=== PATIENT | female | born 1960 | race Caucasian/White ===

== ENCOUNTER → 2016-07-23 | Outpatient (CLI) | payer BC ==
[~2016-07-23] VITALS: Ht 162.6 cm; Wt 95.3 kg
[~2016-07-23] MED LIST: /AMLO25TA PO; /MOM400 PO; /ROPI5TA PO; /WARF5TA PO; ATIV0.5T3 PO; BACIDCA PO; BENT20TA PO; CIPR500T89 PO; CLIN75CA PO; COLA50CA3 PO; CYMB1CAP PO; CYMB60CA3 PO; DONN1TAB PO; FENT50DI21 TD; FERR325T69 PO; FLUC10TA PO; FLUO40CA PO; GABA-283 PO; LASI20TA PO; LEVO88TA3 PO; LIDOCAINE 2% INJ 100 MG/5 ML SDV (FOR ANES.) As Ordered ONE; LORA1TAB PO; LORA1TAB12 PO; MICR10CA PO; MIRA255PW PO; MULTCAP8 PO; OXYC40TA6 PO; OXYCO5TA PO; PRED5TAB PO; PREM0.452 PO; PRIL20CA PO; PROPOFOL 200 MG/20 ML VIAL As Ordered ONE; SENO8.6T9 PO; TEKT150T PO; TEKT300T PO; TIZA2TA PO; TOPA100T8 PO; TOPA50TA PO; TYLE325T5 PO; ULTR50TA PO; VICO5TAB PO; VITA2000 PO; ZOFR20TA PO; ZOFR4TAB3 PO; [UNRECOGNIZED DRUG - CODE] IM; [UNRECOGNIZED DRUG - OTHER] PO; fleets
--- NOTE | 2016-07-23 14:30 | ROOR ---
Patient Name: Parul Nieto Procedure Date: 07/23/2016 2:17 PM Date of : 1960 Age: 56 Room: [facility] Gender: Female Note Status: Finalized Procedure: Upper GI endoscopy + Biopsies Indications: Heartburn, Follow-up of Davila's esophagus Providers: Ronny Baker MD Referring MD: Darryl Austin MD Requesting Provider: Medicines: Monitored Anesthesia Care Complications: No immediate complications. Procedure: Pre-Anesthesia Assessment: - The heart rate, respiratory rate, oxygen saturations, blood pressure, adequacy of pulmonary ventilation, and response to care were monitored throughout the procedure. The Endoscope was introduced through the mouth, and advanced to the second part of duodenum. The upper GI endoscopy was accomplished without difficulty. The patient tolerated the procedure well. Findings: The Z-line was regular and was found 35 cm from the incisors. Multiple biopsies were obtained with cold forceps for evaluation to rule out Davila's Esophagus randomly at the gastroesophageal junction. A small hiatal hernia was present. No other significant abnormalities were identified in a careful examination of the stomach. The exam of the duodenum was otherwise normal. Impression: - Z-line regular, 35 cm from the incisors. - Small hiatal hernia. - Multiple biopsies were obtained at the gastroesophageal junction. - The examination was otherwise normal. Recommendation: - Patient has a contact number available for emergencies. The signs and symptoms of potential delayed complications were discussed with the patient. Return to normal activities tomorrow. Written discharge instructions were provided to the patient. - High fiber diet. - Discharge patient to home. - Follow an antireflux regimen. - Continue present medications. - Await pathology results. - Telephone GI clinic for pathology results in 1 week. - Return to referring physician. - The findings and recommendations were discussed with the patient's family. Ronny Baker MD Ronny Baker MD 07/23/2016 2:30:27 PM This report has been signed electronically. Number of Addenda: 0 Note Initiated On: 07/23/2016 2:17 PM Estimated Blood Loss: Estimated blood loss: none.
[2016-07-23 15:09] VITALS: BP 146/80
== END | disposition home or self-care (01) ==
LOC: M OPP 13:17
PROVIDERS: ATTEND Internal Medicine Gastroenterology
DX: K22.70 Barrett's esophagus without dysplasia (principal); K44.9 Diaphragmatic hernia without obstruction or gangrene; R12 Heartburn; K57.30 Diverticulosis of large intestine without perforation or abscess without bleeding; R00.8 Other abnormalities of heart beat; I10 Essential (primary) hypertension; E03.9 Hypothyroidism, unspecified; K58.9 Irritable bowel syndrome, unspecified; K21.9 Gastro-esophageal reflux disease without esophagitis; R23.3 Spontaneous ecchymoses; M19.90 Unspecified osteoarthritis, unspecified site; M54.9 Dorsalgia, unspecified; F41.9 Anxiety disorder, unspecified; F32.9 Major depressive disorder, single episode, unspecified; G43.909 Migraine, unspecified, not intractable, without status migrainosus; Z78.0 Asymptomatic menopausal state; J45.909 Unspecified asthma, uncomplicated; Z87.891 Personal history of nicotine dependence; Z80.0 Family history of malignant neoplasm of digestive organs; Z88.1 Allergy status to other antibiotic agents; Z91.040 Latex allergy status; Z79.899 Other long term (current) drug therapy; Z80.51 Family history of malignant neoplasm of kidney; Z80.8 Family history of malignant neoplasm of other organs or systems

== ENCOUNTER → 2016-09-11 | Outpatient (REF) | payer BC ==
[~2016-09-11] MED LIST changes: -LIDOCAINE 2% INJ 100 MG/5 ML SDV (FOR ANES.) As Ordered ONE; -PROPOFOL 200 MG/20 ML VIAL As Ordered ONE
[2016-09-11 19:14] LABS: BASO % 0.3 % (0.0-1.0); EOS # 0.1 K/mm3 (0.0-0.50); EOS % 2.1 % (0.0-3.0); LARGE UNSTAINED CELL # 0.1 K/mm3 (0.0-0.4); LARGE UNSTAINED CELL % 1.3 % (0.0-4.0); LYMPH # 0.9 K/mm3 (1.5-4.5); LYMPH % 23.3 % (24.0-44.0); MEAN CORPUSCULAR HEMOGLOBIN 32.9 pg (27.0-33.0); MEAN CORPUSCULAR VOLUME 102.9 fl (80.0-96.0); MONO # 0.3 K/mm3 (0.0-0.8); MONO % 7.4 % (0.0-5.0); NEUTROPHILS # 2.6 K/mm3 (1.8-7.7); NEUTROPHILS % 65.6 % (36.0-66.0); PLATELET COUNT, AUTOMATED 255 k/mm3 (150-450); RED CELL DISTRIBUTION WIDTH 13.2 % (11.5-14.5); WHITE BLOOD COUNT 3.9 K/mm3 (4.0-10.0)
[2016-09-11 22:03] LABS: ERYTHROCYTE SEDIMENTATION RATE 5 mm/hr (0-30)
== END ==
LOC: M LABDRAW1 14:39
PROVIDERS: ATTEND Orthopaedic Surgery
DX: M25.551 Pain in right hip (principal)

== ENCOUNTER → 2016-09-23 | Outpatient (CLI) | payer BC ==
--- NOTE | 2016-09-23 11:00 | REP ---
THREE-PHASE BONE SCAN OF THE HIPS: HISTORY: Pain in the right hip. History of partial right hip replacement in 2014. History of prior fracture of the pelvis. CT study from December 15, 2013 shows a right femoral head replacement and right superior and inferior pubic ramus fractures at the pubis. TECHNIQUE: 20.8 mCi technetium 99m MDP is injected and standard three-phase imaging is acquired. SCINTIGRAPHIC FINDINGS: The anterior and posterior flow study is normal. Blood pool images show no significant asymmetry of flow in the region of either hip. Delayed scan images demonstrate expected photopenia from the right hip prosthetic components. There is no abnormal focal uptake to suggest loosening or infection. The remainder of pelvic and right hip uptake are unremarkable. IMPRESSION: Expected findings post right femoral head replacement. No scintigraphic evidence to suggest loosening or infection. Signed by Niranjan Armendariz MD 09/23/2016 05:07 P
== END ==
LOC: M RAD 07:39
PROVIDERS: ATTEND Orthopaedic Surgery
DX: M25.551 Pain in right hip (principal)

== ENCOUNTER 2018-03-10 07:25 | Day surgery (SDC) | payer BC ==
[2018-03-10] MEDS: NS 1,000 ML IV (07:30)
[2018-03-10] MEDS ORDERED: PROPOFOL 200 MG/20 ML VIAL As Ordered ×3 (08:02→10:11)
[2018-03-10] MEDS ORDERED: LIDOCAINE 2% INJ 100 MG/5 ML SDV (FOR ANES.) As Ordered (08:02)
== END 2018-03-10 10:54 | disposition home or self-care (01) ==
LOC: M OPP 07:25
DX: Z12.11 Encounter for screening for malignant neoplasm of colon (principal); D12.4 Benign neoplasm of descending colon; K64.0 First degree hemorrhoids; R12 Heartburn; K22.8 Other specified diseases of esophagus; K29.50 Unspecified chronic gastritis without bleeding; K22.10 Ulcer of esophagus without bleeding; I10 Essential (primary) hypertension; E03.9 Hypothyroidism, unspecified; K58.9 Irritable bowel syndrome, unspecified; M19.90 Unspecified osteoarthritis, unspecified site; M81.0 Age-related osteoporosis without current pathological fracture; F33.9 Major depressive disorder, recurrent, unspecified; F41.9 Anxiety disorder, unspecified; Z78.0 Asymptomatic menopausal state; R06.83 Snoring; Z79.899 Other long term (current) drug therapy; Z79.890 Hormone replacement therapy; Z88.8 Allergy status to other drugs, medicaments and biological substances; Z88.1 Allergy status to other antibiotic agents; Z91.040 Latex allergy status; Z87.19 Personal history of other diseases of the digestive system; Z86.19 Personal history of other infectious and parasitic diseases; Z98.890 Other specified postprocedural states; Z96.89 Presence of other specified functional implants
CPT/HCPCS: 45380

== ENCOUNTER → 2018-03-12 | Outpatient (CLI) | payer BC ==
[2018-03-12 20:24] LABS: BASO % 0.8 % (0.0-1.0); EOS # 0.1 10^3/uL (0.0-0.50); EOS % 2.5 % (0.0-3.0); HEMATOCRIT 42.9 % (36.0-47.0); HEMOGLOBIN 13.6 g/dl (12.0-15.5); IMMATURE GRANULOCYTE % 0.4 % (0-3.0); LYMPH # 1.3 10^3/uL (1.5-4.5); MEAN CORPUSCULAR HEMOGLOBIN 30.6 pg (27.0-33.0); MEAN CORPUSCULAR HGB CONC 31.7 g/dl (32.0-36.5); MEAN CORPUSCULAR VOLUME 96.6 fl (80.0-96.0); MONO # 0.3 10^3/uL (0.0-0.8); MONO % 6.8 % (0.0-5.0); NEUTROPHILS # 2.9 10^3/uL (1.8-7.7); NEUTROPHILS % 62.5 % (36.0-66.0); PLATELET COUNT, AUTOMATED 290 10^3/uL (150-450); RED BLOOD COUNT 4.44 10^6/uL (4.00-5.40); RED CELL DISTRIBUTION WIDTH 12.6 % (11.5-14.5); WHITE BLOOD COUNT 4.7 10^3/uL (4.0-10.0)
[2018-03-12 20:42] LABS: ALBUMIN 3.6 GM/DL (3.2-5.2); ALKALINE PHOSPHATASE 94 U/L (45-117); ALT/SGPT 76 U/L (12-78); ANION GAP 9 MEQ/L (8-16); AST/SGOT 34 U/L (7-37); BILIRUBIN,TOTAL 0.2 MG/DL (0.2-1.0); BLOOD UREA NITROGEN 10 MG/DL (7-18); CALCIUM LEVEL 9.1 MG/DL (8.5-10.1); CARBON DIOXIDE LEVEL 27 MEQ/L (21-32); CHLORIDE LEVEL 104 MEQ/L (98-107); CHOLESTEROL LEVEL 142 MG/DL (<200); CHOLESTEROL RISK RATIO 3.021 (<5); CREATININE FOR GFR 0.94 MG/DL (0.55-1.30); FREE T4 0.98 NG/DL (0.76-1.46); GLOMERULAR FILTRATION RATE > 60.0 (>51); GLUCOSE, FASTING 104 MG/DL (70-100); HDL CHOLESTEROL 47 MG/DL (>40); LDL CHOLESTEROL 62 MG/DL (<100); NON-HDL-C 95 MG/DL; POTASSIUM SERUM 4.3 MEQ/L (3.5-5.1); SODIUM LEVEL 140 MEQ/L (136-145); TOTAL PROTEIN 6.6 GM/DL (6.4-8.2); TRIGLYCERIDES LEVEL 165 MG/DL (<150)
== END ==
LOC: M LRY 14:38
DX: E78.5 Hyperlipidemia, unspecified (principal); I10 Essential (primary) hypertension; E03.9 Hypothyroidism, unspecified
CPT/HCPCS: 84443

== ENCOUNTER → 2019-06-10 | Outpatient (CLI) | payer BC ==
[~2019-06-10] MED LIST changes: -/AMLO25TA PO; -/MOM400 PO; -/ROPI5TA PO; -/WARF5TA PO; +ALIS150T PO; +CLON0.2T PO; +COUM1TAB17 PO; +CRES5TAB PO; +CYCL10TA PO; +DICY20TA PO; -DONN1TAB PO; +DONN1TAB3 PO; +FENT1DIS14 TD; -GABA-283 PO; +GABA-843 PO; +GABA-845 PO; +HYDR-4571 PO; -LORA1TAB12 PO; +LORA1TAB4 PO; +MAXA10TA14 PO; +MILK10SU PO; -MIRA255PW PO; +NORV2TAB PO; +ONDA-228 PO; +OXYC-517 PO; -OXYCO5TA PO; +PATA2.5S OS; +POLY1POW4 PO; +REQU1TAB15 PO; -TEKT150T PO; +TOPA100T12 PO; -TOPA100T8 PO; -ZOFR20TA PO; +ZOFR4TAB16 PO; -ZOFR4TAB3 PO
[2019-06-10 11:59] LABS: APPEARANCE, URINE HAZY (CLEAR); BACTERIA, URINE AUTO NEGATIVE (NEGATIVE); BILIRUBIN, URINE AUTO NEGATIVE (NEGATIVE); BLOOD, URINE BLOOD NEGATIVE (NEGATIVE); COLOR, URINE YELLOW (YELLOW); GLUCOSE, URINE (UA) AUTO NEGATIVE (NEGATIVE); KETONE, URINE AUTO NEGATIVE (NEGATIVE); LEUKOCYTE ESTERASE, URINE AUTO 2+ (NEGATIVE); MUCUS, URINE SMALL (NEGATIVE); NITRITE, URINE AUTO NEGATIVE (NEGATIVE); PROTEIN, URINE AUTO NEGATIVE (NEGATIVE); RBC, URINE AUTO 2 /HPF (0-3); SPECIFIC GRAVITY URINE AUTO 1.029 (1.002-1.035); SQUAMOUS EPITHELIAL CELL UR AU 1 /HPF (0-6); UROBILINOGEN, URINE AUTO 0.2 mg/dL (0.0-2.0); WBC, URINE AUTO 23 /HPF (0-3)
[2019-06-10 12:01] LABS: BASO # 0.1 10^3/uL (0.0-0.2); BASO % 0.8 % (0.0-1.0); EOS # 0.2 10^3/uL (0.0-0.5); EOS % 3.5 % (0.0-3.0); HEMATOCRIT 45.4 % (36.0-47.0); HEMOGLOBIN 14.4 g/dl (12.0-15.5); LYMPH # 3.2 10^3/uL (1.5-5.0); LYMPH % 52.3 % (24.0-44.0); MEAN CORPUSCULAR HEMOGLOBIN 30.1 pg (27.0-33.0); MEAN CORPUSCULAR HGB CONC 31.7 g/dl (32.0-36.5); MONO # 0.4 10^3/uL (0.0-0.8); MONO % 6.6 % (0.0-5.0); NEUTROPHILS # 2.3 10^3/uL (1.5-8.5); NEUTROPHILS % 36.6 % (36.0-66.0); PLATELET COUNT, AUTOMATED 348 10^3/uL (150-450); RED BLOOD COUNT 4.78 10^6/uL (4.00-5.40); WHITE BLOOD COUNT 6.2 10^3/uL (4.0-10.0)
[2019-06-10 12:13] LABS: ALBUMIN 4.1 GM/DL (3.2-5.2); ALT/SGPT 125 U/L (12-78); AMYLASE 38 U/L (25-115); BILIRUBIN,TOTAL 0.5 MG/DL (0.2-1.0); BLOOD UREA NITROGEN 13 MG/DL (7-18); CALCIUM LEVEL 8.7 MG/DL (8.5-10.1); CARBON DIOXIDE LEVEL 26 MEQ/L (21-32); CHLORIDE LEVEL 107 MEQ/L (98-107); CHOLESTEROL LEVEL 223 MG/DL (<200); CHOLESTEROL RISK RATIO 3.912 (<5); CREATININE FOR GFR 0.99 MG/DL (0.55-1.30); FREE T4 1.01 NG/DL (0.76-1.46); GLOMERULAR FILTRATION RATE > 60.0 (>51); GLUCOSE, FASTING 79 MG/DL (70-100); HDL CHOLESTEROL 57 MG/DL (>40); LDL CHOLESTEROL 136 MG/DL (<100); LIPASE 79 U/L (73-393); MAGNESIUM LEVEL 2.3 MG/DL (1.8-2.4); NON-HDL-C 166 MG/DL; POTASSIUM SERUM 4.4 MEQ/L (3.5-5.1); SODIUM LEVEL 141 MEQ/L (136-145); TOTAL PROTEIN 7.1 GM/DL (6.4-8.2); TRIGLYCERIDES LEVEL 151 MG/DL (<150); TROPONIN I < 0.02 NG/ML (< 0.10)
[2019-06-10 13:26] LABS: TOTAL 25(OH) VITAMIN D 37.4 NG/ML (30.0-100.0)
== END ==
LOC: M LRY 09:12
PROVIDERS: ATTEND Internal Medicine
DX: Z00.00 Encounter for general adult medical examination without abnormal findings (principal); E03.9 Hypothyroidism, unspecified; I10 Essential (primary) hypertension; R10.12 Left upper quadrant pain

== ENCOUNTER → 2019-11-18 | Outpatient (CLI) | payer BC ==
[~2019-11-18] MED LIST changes: +CYCL-707 PO; -CYCL10TA PO
[2019-11-18 19:19] LABS: BASO % 0.8 % (0.0-1.0); EOS # 0.2 10^3/uL (0.0-0.5); EOS % 5.9 % (0.0-3.0); HEMATOCRIT 41.3 % (36.0-47.0); HEMOGLOBIN 13.9 g/dl (12.0-15.5); LYMPH # 1.5 10^3/uL (1.5-5.0); LYMPH % 40.5 % (24.0-44.0); MEAN CORPUSCULAR HGB CONC 33.7 g/dl (32.0-36.5); MONO # 0.2 10^3/uL (0.0-0.8); MONO % 6.4 % (0.0-5.0); NEUTROPHILS # 1.7 10^3/uL (1.5-8.5); NEUTROPHILS % 46.1 % (36.0-66.0); PLATELET COUNT, AUTOMATED 332 10^3/uL (150-450); RED BLOOD COUNT 4.49 10^6/uL (4.00-5.40); WHITE BLOOD COUNT 3.6 10^3/uL (4.0-10.0)
[2019-11-18 19:33] LABS: APPEARANCE, URINE CLEAR (CLEAR); BACTERIA, URINE AUTO NEGATIVE (NEGATIVE); BILIRUBIN, URINE AUTO NEGATIVE (NEGATIVE); BLOOD, URINE BLOOD NEGATIVE (NEGATIVE); COLOR, URINE STRAW (YELLOW); GLUCOSE, URINE (UA) AUTO NEGATIVE (NEGATIVE); KETONE, URINE AUTO NEGATIVE (NEGATIVE); LEUKOCYTE ESTERASE, URINE AUTO NEGATIVE (NEGATIVE); MUCUS, URINE SMALL (NEGATIVE); NITRITE, URINE AUTO NEGATIVE (NEGATIVE); PROTEIN, URINE AUTO NEGATIVE (NEGATIVE); RBC, URINE AUTO 0 /HPF (0-3); SPECIFIC GRAVITY URINE AUTO 1.008 (1.002-1.035); SQUAMOUS EPITHELIAL CELL UR AU 0 /HPF (0-6); UROBILINOGEN, URINE AUTO 0.2 mg/dL (0.0-2.0); WBC, URINE AUTO 1 /HPF (0-3)
[2019-11-18 19:52] LABS: ALT/SGPT 59 U/L (12-78); BILIRUBIN,DIRECT < 0.1 MG/DL (0.0-0.2); BILIRUBIN,TOTAL 0.2 MG/DL (0.2-1.0); BLOOD UREA NITROGEN 9 MG/DL (7-18); CALCIUM LEVEL 8.8 MG/DL (8.5-10.1); CARBON DIOXIDE LEVEL 24 MEQ/L (21-32); CHLORIDE LEVEL 107 MEQ/L (98-107); CHOLESTEROL LEVEL 162 MG/DL (<200); CREATININE FOR GFR 0.94 MG/DL (0.55-1.30); GLOMERULAR FILTRATION RATE > 60.0 (>51); GLUCOSE, FASTING 92 MG/DL (70-100); POTASSIUM SERUM 4.6 MEQ/L (3.5-5.1); SODIUM LEVEL 138 MEQ/L (136-145); TRIGLYCERIDES LEVEL 141 MG/DL (<150)
[2019-11-18 19:53] LABS: ALBUMIN 3.8 GM/DL (3.2-5.2); C REACTIVE PROTEIN QUANTITATIV < 0.30 MG/DL (0.00-0.30); FREE T4 0.96 NG/DL (0.76-1.46); HDL CHOLESTEROL 50 MG/DL (>40); LDL CHOLESTEROL 84 MG/DL (<100); NON-HDL-C 112 MG/DL; THYROID STIMULATING HORMONE 0.407 uIU/ML (0.358-3.740)
[2019-11-18 19:55] LABS: FOLATE 23.3 NG/ML (>5.4); TOTAL 25(OH) VITAMIN D 42.4 NG/ML (30.0-100.0); VITAMIN B12 LEVEL 493 PG/ML (247-911)
[2019-11-18 20:09] LABS: ERYTHROCYTE SEDIMENTATION RATE 4 mm/hr (0-30)
== END ==
LOC: M LRY 15:42
PROVIDERS: ATTEND Internal Medicine
DX: R53.82 Chronic fatigue, unspecified (principal); N39.0 Urinary tract infection, site not specified; R74.0 Nonspecific elevation of levels of transaminase and lactic acid dehydrogenase [LDH]

== ENCOUNTER → 2020-03-09 | Outpatient (CLI) | payer BC ==
[2020-03-09 17:16] LABS: BASO % 0.7 % (0.0-1.0); EOS # 0.1 10^3/uL (0.0-0.5); EOS % 0.9 % (0.0-3.0); HEMATOCRIT 41.1 % (36.0-47.0); LYMPH # 1.6 10^3/uL (1.5-5.0); LYMPH % 27.7 % (24.0-44.0); MEAN CORPUSCULAR HEMOGLOBIN 30.5 pg (27.0-33.0); MEAN CORPUSCULAR HGB CONC 31.6 g/dl (32.0-36.5); MEAN CORPUSCULAR VOLUME 96.5 fl (80.0-96.0); MONO # 0.5 10^3/uL (0.0-0.8); MONO % 7.9 % (0.0-5.0); NEUTROPHILS # 3.6 10^3/uL (1.5-8.5); NEUTROPHILS % 62.6 % (36.0-66.0); PLATELET COUNT, AUTOMATED 466 10^3/uL (150-450); RED BLOOD COUNT 4.26 10^6/uL (4.00-5.40); WHITE BLOOD COUNT 5.7 10^3/uL (4.0-10.0)
[2020-03-09 17:30] LABS: ALBUMIN 3.8 GM/DL (3.2-5.2); ALT/SGPT 26 U/L (12-78); BILIRUBIN,TOTAL 0.2 MG/DL (0.2-1.0); BLOOD UREA NITROGEN 15 MG/DL (7-18); CALCIUM LEVEL 9.2 MG/DL (8.5-10.1); CARBON DIOXIDE LEVEL 29 MEQ/L (21-32); CHLORIDE LEVEL 108 MEQ/L (98-107); CREATININE FOR GFR 0.81 MG/DL (0.55-1.30); GLOMERULAR FILTRATION RATE > 60.0 (>51); GLUCOSE, FASTING 89 MG/DL (70-100); POTASSIUM SERUM 4.6 MEQ/L (3.5-5.1); SODIUM LEVEL 141 MEQ/L (136-145); TOTAL PROTEIN 6.6 GM/DL (6.4-8.2)
[2020-03-09 18:12] LABS: ERYTHROCYTE SEDIMENTATION RATE 5 mm/hr (0-30)
[2020-03-13 13:07] LABS: TOPIRAMATE LEVEL 3.2 ug/mL (2.0-25.0)
== END ==
LOC: M LAB 15:53
PROVIDERS: ATTEND Internal Medicine
DX: G43.419 Hemiplegic migraine, intractable, without status migrainosus (principal)

== ENCOUNTER → 2020-04-08 | Outpatient (CLI) | payer BC ==
[2020-04-08 10:23] LABS: CHOLESTEROL RISK RATIO 2.027 (<5); FREE T4 1.25 NG/DL (0.76-1.46); THYROID STIMULATING HORMONE 0.523 uIU/ML (0.358-3.740)
== END ==
LOC: M LAB 09:15
PROVIDERS: ATTEND Internal Medicine
DX: E03.9 Hypothyroidism, unspecified (principal)

== ENCOUNTER → 2020-06-13 | Outpatient (CLI) | payer BC ==
[~2020-06-13] MED LIST changes: -DICY20TA PO; +DICY20TA3 PO; +GABA-282 PO; -GABA-843 PO
[2020-06-13 18:11] LABS: BASO # 0.1 10^3/uL (0.0-0.2); BASO % 0.5 % (0.0-1.0); HEMATOCRIT 39.9 % (36.0-47.0); HEMOGLOBIN 12.8 g/dl (12.0-15.5); LYMPH # 1.5 10^3/uL (1.5-5.0); LYMPH % 16.4 % (24.0-44.0); MEAN CORPUSCULAR HEMOGLOBIN 29.8 pg (27.0-33.0); MEAN CORPUSCULAR HGB CONC 32.1 g/dl (32.0-36.5); MEAN CORPUSCULAR VOLUME 92.8 fl (80.0-96.0); MONO # 0.5 10^3/uL (0.0-0.8); MONO % 5.4 % (0.0-5.0); NEUTROPHILS # 7.1 10^3/uL (1.5-8.5); NEUTROPHILS % 76.5 % (36.0-66.0); PLATELET COUNT, AUTOMATED 517 10^3/uL (150-450); WHITE BLOOD COUNT 9.3 10^3/uL (4.0-10.0)
[2020-06-13 18:31] LABS: ERYTHROCYTE SEDIMENTATION RATE 5 mm/hr (0-30)
[2020-06-13 18:41] LABS: ALBUMIN 4.1 GM/DL (3.2-5.2); ALT/SGPT 26 U/L (12-78); BILIRUBIN,TOTAL 0.3 MG/DL (0.2-1.0); BLOOD UREA NITROGEN 14 MG/DL (7-18); CALCIUM LEVEL 9.8 MG/DL (8.5-10.1); CARBON DIOXIDE LEVEL 30 MEQ/L (21-32); CHLORIDE LEVEL 100 MEQ/L (98-107); CREATININE FOR GFR 0.78 MG/DL (0.55-1.30); GLOMERULAR FILTRATION RATE > 60.0 (>51); GLUCOSE, FASTING 105 MG/DL (70-100); POTASSIUM SERUM 4.5 MEQ/L (3.5-5.1); SODIUM LEVEL 136 MEQ/L (136-145); TOTAL PROTEIN 7.2 GM/DL (6.4-8.2)
== END ==
LOC: M LAB 17:30
PROVIDERS: ATTEND Internal Medicine
DX: L03.119 Cellulitis of unspecified part of limb (principal)

== ENCOUNTER → 2020-07-31 | Outpatient (REF) | payer BC | LOC: M SFHCPLAZ 17:09 | PROVIDERS: ATTEND Internal Medicine Infectious Disease | DX: L03.119 Cellulitis of unspecified part of limb (principal) ==

== ENCOUNTER → 2020-07-31 | Outpatient (REF) | payer BC ==
[2020-07-31 17:13] LABS: BASO % 0.3 % (0.0-1.0); EOS % 0.1 % (0.0-3.0); HEMATOCRIT 38.9 % (36.0-47.0); HEMOGLOBIN 12.2 g/dl (12.0-15.5); LYMPH # 1.2 10^3/uL (1.5-5.0); LYMPH % 12.8 % (24.0-44.0); MEAN CORPUSCULAR HEMOGLOBIN 28.8 pg (27.0-33.0); MEAN CORPUSCULAR HGB CONC 31.4 g/dl (32.0-36.5); MONO # 0.5 10^3/uL (0.0-0.8); MONO % 5.7 % (2.0-8.0); NEUTROPHILS # 7.4 10^3/uL (1.5-8.5); NEUTROPHILS % 79.7 % (36.0-66.0); PLATELET COUNT, AUTOMATED 451 10^3/uL (150-450); RED BLOOD COUNT 4.23 10^6/uL (4.00-5.40); WHITE BLOOD COUNT 9.3 10^3/uL (4.0-10.0)
[2020-07-31 17:34] LABS: ALBUMIN 3.9 GM/DL (3.2-5.2); ALT/SGPT 37 U/L (12-78); BILIRUBIN,TOTAL 0.3 MG/DL (0.2-1.0); BLOOD UREA NITROGEN 15 MG/DL (7-18); CARBON DIOXIDE LEVEL 28 MEQ/L (21-32); CHLORIDE LEVEL 99 MEQ/L (98-107); CREATININE FOR GFR 0.82 MG/DL (0.55-1.30); GLOMERULAR FILTRATION RATE > 60.0 (>51); GLUCOSE, FASTING 108 MG/DL (70-100); POTASSIUM SERUM 4.5 MEQ/L (3.5-5.1); SODIUM LEVEL 133 MEQ/L (136-145); TOTAL PROTEIN 6.5 GM/DL (6.4-8.2)
[2020-07-31 18:43] LABS: ERYTHROCYTE SEDIMENTATION RATE 3 mm/hr (0-30)
== END ==
LOC: M SFHCPLAZ 15:01
PROVIDERS: ATTEND Internal Medicine Infectious Disease
DX: L03.119 Cellulitis of unspecified part of limb (principal)

== ENCOUNTER → 2020-09-18 | Outpatient (CLI) | payer BC ==
[~2020-09-18] MED LIST changes: +GABA-283 PO; -GABA-845 PO
--- NOTE | 2020-09-18 10:29 | REP ---
INDICATION: EDEMA, UNSPECIFIED,UNSPECIFIED ABDOMINAL PAIN/ECHO 1ST TECHNIQUE: Real time B-mode rosas scale ultrasound examination using curved array transducer. FINDINGS: Liver is heterogeneous and hyperechoic suggesting fatty infiltration. No focal hepatic lesion identified. Spleen, and pancreas are normal in contour, size, echogenicity, and overall appearance. No focal splenic or pancreatic lesions are identified. Gallbladder is surgically absent. No biliary ductal dilatation is appreciated and the common bile duct measures 6 mm diameter.. The bilateral kidneys are normal in reniform shape without hydronephrosis or obvious abnormality. Right kidney measures 8.8 x 4.8 x 3.5 cm. Left kidney measures 10.2 x 5.1 x 5.3 cm. Abdominal aorta measures 2.2 cm maximal diameter. No obvious ascites. IMPRESSION: Hepatosteatosis and possible hepatocellular disease without focal hepatic lesion identified. <Electronically signed by Hesham Boykin > 09/18/20 1026
--- NOTE | 2020-09-19 08:29 | ECHO ---
DATE OF PROCEDURE: 09/18/2020 Age: 60 Gender: Female Height: 160 cm Weight: 103 kg REFERRING PHYSICIAN: Darryl Austin D.O. INDICATION: Edema. MEASUREMENTS: IVS 1.0 cm LV 4.5 cm LVPW 1.0 cm LA 4.5 cm Aorta 2.8 cm Left atrial volume index 32 mL/m2 IVC 2.2 cm Mitral E wave velocity 109 cm/s Mitral A wave 91 cm/s E prime septal 7.7 cm/s E prime lateral 8.8 cm/s FINDINGS: This study is of good technical quality. Underlying sinus rhythm. Left ventricle is normal size. Overall normal LV systolic function with estimated LVEF 65% to 70%. No segmental wall motion abnormalities are appreciated. Right ventricle has also normal size and systolic function. Left atrium is at least moderately enlarged. Right atrium was poorly visualized, but also appears enlarged. The aortic valve is sclerotic, but it has three cusps and preserved mobility. There is thickening of the mitral leaflets, but mobility is preserved. I do not appreciate any distinct prolapse by 2D imaging. Tricuspid valve appears normal. Pulmonic valve was not well seen. No pericardial effusion is noted. Inferior vena cava is dilated and there is no appreciable collapse with inspiration indicative of elevated central venous pressure. Aortic root and aortic arch appear normal. Abdominal aorta was not well seen. Doppler interrogation of the aortic valve reveals no stenosis and trace insufficiency. There is at least moderate if not more severe mitral insufficiency with central MR jet. There is mild tricuspid insufficiency. Calculated pulmonary artery pressure is at least in the low to mid 40s corresponding to moderate pulmonary hypertension. Mitral inflow pattern and tissue Doppler imaging of the mitral annulus revealed most likely grade 2 diastolic dysfunction. CONCLUSIONS: 1. Study is of good technical quality, underlying sinus rhythm. 2. Normal LV size with preserved LV systolic function and probably grade 2 diastolic dysfunction. 3. Normal RV size and systolic function. 4. Aortic sclerosis with no significant stenosis and trace insufficiency. 5. Degenerative abnormalities of the mitral valve with at least moderate mitral insufficiency. 6. Likely elevated central venous pressure and moderate pulmonary hypertension. MTDD
== END ==
LOC: M RAD 09:19
PROVIDERS: ATTEND Internal Medicine
DX: R60.9 Edema, unspecified (principal); R10.9 Unspecified abdominal pain

== ENCOUNTER → 2020-10-16 | Outpatient (CLI) | payer BC ==
--- NOTE | 2020-10-17 09:24 | REPMRS ---
Patient History The patient states she has not had a clinical breast exam in over a year. Patient is postmenopausal. Family history of breast cancer under age 50 in maternal aunt, colorectal cancer at age 50 in paternal grandfather, ovarian cancer at age 34 in daughter. Tomosynthesis is performed. Volpara breast density is a. [facility] lifetime risk of breast cancer 9.1%. Patient states no breast complaints today. Patient has signed MRS History Sheet. Digital Woman Screen Mammo: October 16, 2020 - Exam #: [id number] Bilateral CC and MLO view(s) were taken. Technologist: Fallon Jimenez, Technologist Prior study comparison: 2018, bilateral digital mammo screening bilat, performed at [facility]. 2017, bilateral digital mammo screening bilat, performed at [facility]. FINDINGS: There are scattered fibroglandular densities. There has been no change in the appearance of the mammogram from the prior studies. There is a mild amount of residual fibroglandular tissue which is fairly symmetric. There is no interval development of dominant mass, architectural distortion, or clustered microcalcification suggestive of malignancy. Assessment: BI-RADS/ACR category 1 mammogram. Negative Mammogram. Recommendation Routine screening mammogram in 1 year (for women over age 40). This mammogram was interpreted with the aid of an FDA-approved computer-aided dectection system. Electronically Signed By: Jay Corley MD 10/17/20 0924
== END ==
LOC: M WHC 14:27
PROVIDERS: ATTEND Internal Medicine
DX: Z12.31 Encounter for screening mammogram for malignant neoplasm of breast (principal)

== ENCOUNTER → 2020-10-16 | Outpatient (REF) | payer BC | LOC: M SFHCWAGY 17:16 | PROVIDERS: ATTEND Advanced Practice Midwife | DX: Z12.4 Encounter for screening for malignant neoplasm of cervix (principal) ==

== ENCOUNTER → 2020-11-20 | Outpatient (CLI) | payer BC ==
[2020-11-20 12:35] LABS: BASO % 0.5 % (0.0-1.0); EOS % 0.4 % (0.0-3.0); HEMATOCRIT 37.3 % (36.0-47.0); HEMOGLOBIN 11.6 g/dl (12.0-15.5); LYMPH # 1.4 10^3/uL (1.5-5.0); LYMPH % 19.2 % (24.0-44.0); MEAN CORPUSCULAR HGB CONC 31.1 g/dl (32.0-36.5); MEAN CORPUSCULAR VOLUME 93.3 fl (80.0-96.0); MONO # 0.6 10^3/uL (0.0-0.8); MONO % 7.7 % (2.0-8.0); NEUTROPHILS # 5.4 10^3/uL (1.5-8.5); NEUTROPHILS % 71.7 % (36.0-66.0); PLATELET COUNT, AUTOMATED 351 10^3/uL (150-450); WHITE BLOOD COUNT 7.5 10^3/uL (4.0-10.0)
[2020-11-20 13:10] LABS: ALT/SGPT 35 U/L (12-78); BILIRUBIN,TOTAL 0.2 MG/DL (0.2-1.0); BLOOD UREA NITROGEN 20 MG/DL (7-18); CALCIUM LEVEL 8.9 MG/DL (8.5-10.1); CARBON DIOXIDE LEVEL 27 MEQ/L (21-32); CHLORIDE LEVEL 104 MEQ/L (98-107); CHOLESTEROL LEVEL 316 MG/DL (< 200); CPK CREATINE PHOSPHOKINASE 124 U/L (26-192); GLOMERULAR FILTRATION RATE > 60.0 (>51); GLUCOSE, FASTING 109 MG/DL (70-100); LDH LACTATE DEHYDROGENASE 329 U/L (84-246); PHOSPHORUS LEVEL 3.1 MG/DL (2.5-4.9); POTASSIUM SERUM 4.3 MEQ/L (3.5-5.1); RHEUMATOID FACTOR QUANT < 10.0 IU/ML (<15.0); SODIUM LEVEL 138 MEQ/L (136-145); TOTAL PROTEIN 7.1 GM/DL (6.4-8.2); TRIGLYCERIDES LEVEL 68 MG/DL (<150)
[2020-11-20 13:13] LABS: ERYTHROCYTE SEDIMENTATION RATE 12 mm/hr (0-30)
[2020-11-21 11:08] LABS: ANTINUCLEAR ANTIBODIES DIRECT Negative (Negative)
== END ==
LOC: M LAB 11:31
PROVIDERS: ATTEND Internal Medicine
DX: M13.0 Polyarthritis, unspecified (principal)

== ENCOUNTER → 2020-11-20 | Outpatient (CLI) | payer BC ==
[2020-11-20 13:20] LABS: BLOOD UREA NITROGEN 21 MG/DL (7-18); CALCIUM LEVEL 8.5 MG/DL (8.5-10.1); CARBON DIOXIDE LEVEL 27 MEQ/L (21-32); CHLORIDE LEVEL 103 MEQ/L (98-107); CREATININE FOR GFR 0.86 MG/DL (0.55-1.30); GLOMERULAR FILTRATION RATE > 60.0 (>51); GLUCOSE, FASTING 110 MG/DL (70-100); POTASSIUM SERUM 4.2 MEQ/L (3.5-5.1); SODIUM LEVEL 136 MEQ/L (136-145)
== END ==
LOC: M LAB 11:26
PROVIDERS: ATTEND Internal Medicine Cardiovascular Disease
DX: R06.02 Shortness of breath (principal); I34.0 Nonrheumatic mitral (valve) insufficiency

== ENCOUNTER 2021-01-16 23:47 | Observation (INO) | payer BC ==
[~2021-01-16] VITALS: Ht 160 cm; Wt 117.3 kg
[2021-01-17 00:55] LABS: BASO % 0.4 % (0.0-1.0); EOS # 0.1 10^3/uL (0.0-0.5); EOS % 0.8 % (0.0-3.0); HEMATOCRIT 35.7 % (36.0-47.0); HEMOGLOBIN 11.1 g/dl (12.0-15.5); LYMPH % 36.5 % (24.0-44.0); MEAN CORPUSCULAR HEMOGLOBIN 27.3 pg (27.0-33.0); MEAN CORPUSCULAR HGB CONC 31.1 g/dl (32.0-36.5); MEAN CORPUSCULAR VOLUME 87.9 fl (80.0-96.0); MONO # 0.8 10^3/uL (0.0-0.8); MONO % 9.1 % (2.0-8.0); NEUTROPHILS # 4.4 10^3/uL (1.5-8.5); NEUTROPHILS % 52.7 % (36.0-66.0); PLATELET COUNT, AUTOMATED 374 10^3/uL (150-450); RED BLOOD COUNT 4.06 10^6/uL (4.00-5.40); WHITE BLOOD COUNT 8.3 10^3/uL (4.0-10.0)
[2021-01-17] MEDS ORDERED: ISOVUE-370 76% 100ML VIAL As Ordered ONE (01:34)
[2021-01-17 01:35] LABS: ALBUMIN 3.5 GM/DL (3.2-5.2); BILIRUBIN,DIRECT 0.1 MG/DL (0.0-0.2); BILIRUBIN,TOTAL 0.2 MG/DL (0.2-1.0); CALCIUM LEVEL 8.5 MG/DL (8.5-10.1); CK-MB VALUE MASS 5.9 NG/ML (<3.6); CREATININE FOR GFR 1.16 MG/DL (0.55-1.30); GLOMERULAR FILTRATION RATE 50.9 (>51); MB/CK RELATIVE INDEX 2.46 (< OR =4); POTASSIUM SERUM 3.7 MEQ/L (3.5-5.1); THYROID STIMULATING HORMONE 4.02 uIU/ML (0.358-3.740); TOTAL PROTEIN 6.4 GM/DL (6.4-8.2); TROPONIN I 0.02 NG/ML (< 0.10)
--- NOTE | 2021-01-17 02:16 | REPVR ---
PROCEDURE INFORMATION: Exam: CT Cervical Spine Without Contrast Exam date and time: 01/17/2021 1:13 AM Age: 60 years old Clinical indication: Neck pain; Additional info: Trauma TECHNIQUE: Imaging protocol: Computed tomography images of the cervical spine without contrast. Radiation optimization: All CT scans at this facility use at least one of these dose optimization techniques: automated exposure control; mA and/or kV adjustment per patient size (includes targeted exams where dose is matched to clinical indication); or iterative reconstruction. COMPARISON: No relevant prior studies available. FINDINGS: Bones/joints: No segmental vertebral malalignment. Vertebral body height is maintained at all levels. No acute fracture. No destructive or blastic cervical spine osseous lesion. Discs/Spinal canal/Neural foramina: Intervertebral disc spaces are appropriate for age. Lungs: Imaged lung apices demonstrate no concerning abnormality. Pleural spaces: No apical pneumothorax. Soft tissues: Soft tissues show no concerning abnormality or asymmetry. IMPRESSION: No acute fracture or traumatic segmental cervical malalignment. Electronically signed by: Hugo Solano On 01/17/2021 02:16:25 AM
--- NOTE | 2021-01-17 02:16 | REPVR ---
PROCEDURE INFORMATION: Exam: CT Head Without Contrast Exam date and time: 01/17/2021 1:13 AM Age: 60 years old Clinical indication: Injury or trauma; Fall; Concussion/head injury TECHNIQUE: Imaging protocol: Computed tomography of the head without contrast. Radiation optimization: All CT scans at this facility use at least one of these dose optimization techniques: automated exposure control; mA and/or kV adjustment per patient size (includes targeted exams where dose is matched to clinical indication); or iterative reconstruction. COMPARISON: No relevant prior studies available. FINDINGS: Brain: No intracranial mass, mass effect or midline shift. No acute intracranial hemorrhage. No CT evidence of acute cortical infarct. Ventricles, cisterns, and sulci are normal in size for age. Paranasal sinuses: Imaged paranasal sinuses are normally aerated. Mastoid air cells: Mastoid air cells and middle ear structures are normally aerated. Orbital cavity: Imaged orbits are unremarkable. Bones/joints: No calvarial fracture or destructive process. Soft tissues: No focal extracranial soft tissue swelling. IMPRESSION: No acute or concerning focal intracranial abnormality. Electronically signed by: Hugo Solano On 01/17/2021 02:15:42 AM
--- NOTE | 2021-01-17 02:19 | REPVR ---
PROCEDURE INFORMATION: Exam: CTA Chest With Contrast Exam date and time: 01/17/2021 1:13 AM Age: 60 years old Clinical indication: Other: Syncope; Additional info: Chest pain syncope TECHNIQUE: Imaging protocol: Computed tomographic angiography of the chest with contrast. 3D rendering (Not supervised by radiologist): MIP and/or 3D reconstructed images were created by the technologist. Radiation optimization: All CT scans at this facility use at least one of these dose optimization techniques: automated exposure control; mA and/or kV adjustment per patient size (includes targeted exams where dose is matched to clinical indication); or iterative reconstruction. Contrast material: ISO; Contrast volume: 75 ml; Contrast route: INTRAVENOUS (IV); COMPARISON: CT Spine,cervical w/o contrast 01/17/2021 1:52 AM FINDINGS: Pulmonary arteries: No focal pulmonary artery filling defect to suggest acute pulmonary embolus. Aorta: No thoracic aortic aneurysm or dissection. Lungs: Pulmonary vascular/interstitial pattern does not suggest active pulmonary edema. No suspicious lung mass or air space process. No central endobronchial lesion. Pleural spaces: No pleural effusion or pneumothorax. Heart: Prominent sized heart. No pericardial effusion. Lymph nodes: No enlarged mediastinal lymph nodes. Bones/joints: Bony structures show no acute fracture or destructive process. Soft tissues: No asymmetric abnormality of the extrathoracic soft tissues. No concerning asymmetry or abnormality at the GE junction. IMPRESSION: 1. No evidence of acute pulmonary embolus. 2. No other acute or concerning focal intrathoracic abnormality. Electronically signed by: Hugo Solano On 01/17/2021 02:18:39 AM
[2021-01-17] MEDS ORDERED: ACETAMINOPHEN TAB 650MG DOSE (2X325MG) PO PRN (02:50)
[2021-01-17] MEDS ORDERED: MAALOX 30 ML SUSP *UDC PO PRN (02:50)
[2021-01-17] MEDS ORDERED: MOM 30ML SUSPENSION UDC PO PRN (02:50)
[2021-01-17 03:23] LABS: RSV AMPLIFICATION NEGATIVE (NEGATIVE)
--- NOTE | 2021-01-17 05:21 | HPEPDOC ---
[facility] Medical History & Physical Date of Admission Jan 17, 2021 Date of Service: Jan 17, 2021 Attending Physician: FELICIANO HOWELL MD History and Physical TIME OF SERVICE: CHIEF COMPLAINT: loss of consciousness HISTORY OF PRESENT ILLNESS: Over the last few months has not been feeling well. She has gained water weight, has had chest pain, and shortness of breath. She has been evaluated by . Yesterday evening while preparing to eat dinner her found her on the floor passed out. cant remember how she ended up on the floor. She remembers seeing director paid media in her house but has difficulties remembering all of the events leading up to her arrival in the ER. This is the first time she has lost consciousness. She denies vomiting yesterday, denies eating or drinking less than usual yesterday, denies having a change in her chronic chest pain yesterday, & denies any changes in her chronic shortness of breath yesterday. Of note she had 3 migraines yesterday, which is atypical and after each episode had loose stools. She denies having bloody BMs. REVIEW OF SYSTEMS: 10-point review of systems negative except as listed in HPI PAST MEDICAL/ SURGICAL HISTORY: Migraines Moderate Pulm HTN Moderate mitral insufficiency Essential HTN Chronic HFpEF (Grade 2) IBS-D Hypothyroidism Right shoulder adhesive capsulitis PATY Barretts esophagus Recurrent lower extremity cellulitis Cholecystectomy Bilateral hip surgeries Back surgery Tubal Ligation Placement of a spinal stimulator device with subsequent reversal FAMILY HISTORY: Multiple family members had cancer (pancreatic, colon and renal) SOCIAL HISTORY: She is a former smoker (quit in her 20s), is and lives with her ALLERGIES: Please see below. HOME MEDICATIONS: Please see below. PHYSICAL EXAMINATION: Vital Signs Date Time Temp Pulse Resp B/P (MAP) Pulse Ox O2 Delivery O2 Flow Rate FiO2 01/17/21 00:42 118/55 (76) 01/17/21 00:47 70 99 01/17/21 01:19 Room Air 01/17/21 01:35 19 01/17/21 01:53 97.9 GENERAL APPEARANCE: well-nourished and developed/ slightly anxious HEENT: EOMI / MMM&P CARDIOVASCULAR: RRR/NMRG LUNGS: CTAB on RA ABDOMEN: contour convex / soft & NT w palpation MUSCULOSKELETAL: NCAT / SIMEON x 4 extremities INTEGUMENT: not cyanotic, flushed or diaphoretic NEUROLOGICAL: CN 2-12 grossly intact / speech not dysarthric PSYCHIATRIC: A&O x 3 / able to understand and follow all commands LABORATORY DATA: IMAGING: CTA chest IMPRESSION: 1. No evidence of acute pulmonary embolus. 2. No other acute or concerning focal intrathoracic abnormality. CT head IMPRESSION: No acute or concerning focal intracranial abnormality. CT cervical spine IMPRESSION: No acute fracture or traumatic segmental cervical malalignment. MICROBIOLOGY: Respiratory panel neg ASSESSMENT: is a 60 yr old w Migraines, Pulm HTN, mitral insufficiency, HTN, HFpEF, IBS-D, Hypothyroidism, adhesive capsulitis, PATY, Barretts esophagus & lower extremity cellulitis who is admitted for evaluation of syncope. PLAN: 1 Syncope Cause TBD Plan: admit to medical floor / telemetry / check orthostats / the day time team may consider ordering additional tests, if they see fit, and or discuss the case with 2 QTc prolongation EKG showed sinus rhythm w a rate of 68 NE of 178 & QTc of 489 Plan: tele / f/u repeat EKG 3 Migraines Plan: rizatriptan 4 Chronic HFpEF / Moderate Pulm HTN / Moderate mitral insufficiency According to the patient she was on Lasix but felt unwell when she took the medication 5 Essential HTN Plan: aliskiren, clonidine 6 IBS-D Plan: dicyclomine 7 Hypothyroidism Plan: levothyroxine 8 PATY Plan: lorazepam 9 Class 3 obesity complicates care DVT px w lovenox Dispo: home after less than 2 midnights stay Home Medications Scheduled Aliskiren Hemifumarate (Tekturna) 300 Mg Tab, 300 MG PO QPM TAKES AT 1600 Clonidine HCl (Clonidine HCl) 0.2 Mg Tab, 0.1 MG PO BID HOLD IF SBP<140 Famotidine (Famotidine) 40 Mg Tablet, 40 MG PO BID Fremanezumab-Vfrm (Ajovy) 225 Mg/1.5 Ml Syringe, 225 MG SC QMONTH Lansoprazole (Lansoprazole) 30 Mg Capsule.dr 30 MG PO BID Levothyroxine Sodium (Synthroid) 100 Mcg Tablet, 100 MCG PO DAILY Loratadine (Claritin) 10 Mg Tablet, 10 MG PO DAILY Ubidecarenone (Co Q-10) 50 Mg Capsule, 50 MG PO DAILY Scheduled PRN Butalb/Acetaminophen/Caffeine (Fioricet 50-300-40 mg Capsule) 1 Each Capsule, 1 CAP PO QID PRN for HEADACHE Carboxymethylcellulose Sodium (Refresh Tears) 15 Ml Drops, 1 DROP OU QID PRN for DRY EYES Chlorpheniramine Maleate (Chlor-Trimeton) 4 Mg Tablet, 4 MG PO QID PRN for ALLERGY SYMPTOMS Dexamethasone (Dexamethasone) 2 Mg Tablet, 1 MG PO DAILY PRN for ARTHRITIS Dicyclomine HCl (Dicyclomine HCl) 20 Mg Tab, 20 MG PO QID PRN for CRAMPS Hydrocodone/Acetaminophen (Hydrocodone-Acetamin 10-325 mg) 1 Each Tablet, 1 TAB PO QID PRN for MODERATE PAIN (PS 5-7) Hydrocodone/Acetaminophen (Hydrocodone-Acetamin 10-325 mg) 1 Each Tablet, 2 TAB PO QID PRN for SEVERE PAIN (PS 8-10) Hydroxyzine HCl (Hydroxyzine HCl) 50 Mg Tablet, 50 MG PO QID PRN for ANXIETY Lactase (Lactaid) 3,000 Unit Tablet, 3,000 UNIT PO ASDIRECTED PRN for LACTOSE INTOLERANCE Lorazepam (Ativan) 1 Mg Tablet, 1 MG PO QID PRN for ANXIETY Tizanidine HCl (Tizanidine HCl) 4 Mg Tablet, 2 MG PO QID PRN for MUSCLE SPASMS Allergies Coded Allergies: DILIA Inhibitors (Verified Allergy, Unknown, 01/17/21) bacitracin (Verified Allergy, Unknown, 01/17/21) latex (Verified Allergy, Unknown, 01/17/21) neomycin (Verified Allergy, Unknown, 01/17/21) polymyxin B (Verified Allergy, Unknown, 01/17/21) rizatriptan (Verified Adverse Reaction, Severe, CHEST TIGHTENING, 01/17/21) sumatriptan (Verified Adverse Reaction, Intermediate, BODY ACHES, 01/17/21) A-FIB/CHADSVASC A-FIB History Current/History of A-Fib/PAF?: No Current PO Anticoag Therapy: No FELICIANO HOWELL MD Jan 17, 2021 05:20
[2021-01-17] MEDS ORDERED: SYNT100T PO (05:34)
[2021-01-17] MEDS ORDERED: FAMO40TA3 PO (05:34)
[2021-01-17] MEDS ORDERED: LACT3000 PO (05:34)
[2021-01-17] MEDS ORDERED: CHLO4TAB PO (05:34)
[2021-01-17] MEDS ORDERED: REFR0.5D8 OU (05:34)
[2021-01-17] MEDS ORDERED: ATIV1TAB7 PO (05:34)
[2021-01-17] MEDS ORDERED: CLAR10TA7 PO (05:34)
[2021-01-17] MEDS ORDERED: COQ150CA PO (05:34)
[2021-01-17] MEDS ORDERED: LANS30CA PO (05:34)
[2021-01-17] MEDS ORDERED: DEXA2TA PO (05:34)
[2021-01-17] MEDS ORDERED: HYDR-4517 PO (05:34)
[2021-01-17] MEDS ORDERED: TIZA4TAB4 PO (05:34)
[2021-01-17] MEDS ORDERED: AJOV225I SC (05:34)
[2021-01-17] MEDS ORDERED: FIOR1CAP PO (05:34)
[2021-01-17] MEDS ORDERED: HYDR50TA70 PO (05:34)
[2021-01-17] MEDS ORDERED: HOME MED LIST COMPLETE! XX SCH (05:35)
[2021-01-17] MEDS ORDERED: DICYCLOMINE 10 MG CAP PO PRN (05:50)
[2021-01-17] MEDS ORDERED: ANEXSIA, NORCO 7.5MG/325MG TABLET(HYDROCODONE/APAP) PO PRN (05:50)
[2021-01-17] MEDS ORDERED: hydrOXYzine 50 MG TAB PO PRN (05:50)
[2021-01-17] MEDS ORDERED: LORazepam 1 MG TAB PO PRN (05:50)
[2021-01-17] MEDS ORDERED: POLYVINYL ALCOHOL OPHTH SOLN 15 ML(LIQUITEARS) OU PRN (05:50)
[2021-01-17 06:30] VITALS: BP_SYST 143; BP_SYST 164; BP_SYST 167; BP_DIAS 102; BP_DIAS 88
--- NOTE | 2021-01-17 08:08 | ECGEPIP ---
[facility] - ED Test Date: 2021-01-17 Pat Name: LAZ HOLMAN Department: Room: - Gender: Female Freelance Operator: ED : 1960 Requested By: PEARL Judd Order Number: [id number] Reading MD: Brennon Morse Measurements Intervals [place] Rate: 68 P: 47 [place]: 178 QRS: 25 QRSD: 68 T: 34 QT: 460 QTc: 489 Interpretive Statements Sinus rhythm NSTTW ABNORMALITY(S) BASELINE ARTIFACT AFFECTS INTERPRETATION Electronically Signed on 01-17-2021 8:08:35 EDT by Brennon Morse
--- NOTE | 2021-01-17 08:47 | ECGEPIP ---
[facility] Test Date: 2021-01-17 Pat Name: LAZ HOLMAN Department: Room: [place] [address] Gender: Female Telephone Answering Service Operator: crys : 1960 Requested By: FELICIANO HOWELL Order Number: [id number] Reading MD: Divine Pace Measurements Intervals [place] Rate: 86 P: 61 [place]: 186 QRS: 7 QRSD: 80 T: 14 QT: 394 QTc: 471 Interpretive Statements Normal sinus rhythm Similar to O:51 same day, QT interval is slightly shorter and only marginally p prolonged Electronically Signed on 01-17-2021 8:47:36 EDT by Divine Pace
[2021-01-17] MEDS: FAMOTIDINE 20 MG TAB PO SCH ×2 (09:15→22:08)
[2021-01-17] MEDS: OMEPRAZOLE 20 MG CAP PO SCH ×2 (09:15→22:08)
[2021-01-17] MEDS: LEVOTHYROXINE 100MCG TABLET (0.1MG) PO SCH (09:15)
[2021-01-17] MEDS: LORATADINE 10 MG TAB PO SCH (09:15)
[2021-01-17] MEDS: CO-ENZYME Q10 50 MG CAP PO SCH (09:15)
[2021-01-17] MEDS: ANEXSIA, NORCO 7.5MG/325MG TABLET(HYDROCODONE/APAP) PO PRN ×2 (09:15→17:29)
[2021-01-17] MEDS: ENOXAPARIN 40MG/0.4ML SYRINGE (J1650 PER 10MG) SC SCH (09:16)
[2021-01-17 09:20] LABS: HEMATOCRIT 37.7 % (36.0-47.0); HEMOGLOBIN 11.9 g/dl (12.0-15.5); MEAN CORPUSCULAR HEMOGLOBIN 27.3 pg (27.0-33.0); MEAN CORPUSCULAR HGB CONC 31.6 g/dl (32.0-36.5); MEAN CORPUSCULAR VOLUME 86.5 fl (80.0-96.0); PLATELET COUNT, AUTOMATED 393 10^3/uL (150-450); RED BLOOD COUNT 4.36 10^6/uL (4.00-5.40); WHITE BLOOD COUNT 8.2 10^3/uL (4.0-10.0)
[2021-01-17 09:52] LABS: BLOOD UREA NITROGEN 12 MG/DL (7-18); CALCIUM LEVEL 9.2 MG/DL (8.5-10.1); CARBON DIOXIDE LEVEL 23 MEQ/L (21-32); CHLORIDE LEVEL 107 MEQ/L (98-107); CREATININE FOR GFR 0.98 MG/DL (0.55-1.30); GLOMERULAR FILTRATION RATE > 60.0 (>51); GLUCOSE, FASTING 89 MG/DL (70-100); POTASSIUM SERUM 3.9 MEQ/L (3.5-5.1); SODIUM LEVEL 141 MEQ/L (136-145)
[2021-01-17] MEDS: cloNIDine 0.1MG TABLET PO SCH ×2 (10:35→22:07)
[2021-01-17] MEDS: FIORICET TAB PO PRN (10:40)
[2021-01-17] MEDS ORDERED: FLUBLOK(EGG FREE)(QUAD)INFLUENZA VACC 0.5ML SYRINGE 18YRS & OLDER IM ONE (13:00)
[2021-01-17 14:42] VITALS: BP_SYST 145; BP_SYST 157; BP_SYST 202; BP_DIAS 110; BP_DIAS 74; BP_DIAS 83
[2021-01-17] MEDS: tiZANidine 4 MG TAB PO PRN ×2 (15:51→22:06)
[2021-01-17] MEDS ORDERED: ALISKIREN 300 MG PO SCH (16:00)
--- NOTE | 2021-01-17 17:43 | IPNPDOC ---
Text Note Date of Service The patient was seen on 01/17/21. NOTE SUBJECTIVE: -Doing ok this morning, not sure what happened and may have caused her to faint yesterday. No chest pain, palpitations, SOB, abdominal pain. She reports having her chronic pain issues including a headache for which she had just received Fioricet when i arrived, as well as chronic back pain. She is frustrated by all the polypharmacy and many years on Vicodin that she is not sure is still effective and recently dexamethasone for back pain that has now become chronic and Dr. Pace was concerned about the chronic steroid use when she presented with edema. When I asked her about all her meds, unfortunately most are PRN but they are also QID PRN which means she could take a lot in one day and it varies and I strongly suspect that her syncope may have been a result of polypharmacy though cardiac etiologies are under investigation and should be ruled out clem joana with known moderate pulmonary hypertension and recent edema and history of a chronic systolic murmur. OBJECTIVE: GENERAL APPEARANCE: well-nourished and developed, obese HEENT: EOMI, MMM, CARDIOVASCULAR: RRR, systolic murmur at 2nd right intercoastal space at sternal border LUNGS: CTAB on RA ABDOMEN: Normoactive, soft, NTND INTEGUMENT: not cyanotic, flushed or diaphoretic NEUROLOGICAL: CN 3-12 grossly intact / speech not dysarthric PSYCHIATRIC: A&O x 3 / able to understand and follow all commands LABORATORY DATA: Reviewed IMAGING: CTA chest IMPRESSION: 1. No evidence of acute pulmonary embolus. 2. No other acute or concerning focal intrathoracic abnormality. CT head IMPRESSION: No acute or concerning focal intracranial abnormality. CT cervical spine IMPRESSION: No acute fracture or traumatic segmental cervical malalignment. MICROBIOLOGY: Respiratory panel neg ASSESSMENT: 60 yr old w/ severe Migraines, Pulm HTN, mitral insufficiency, HTN, HFpEF, IBS- D, Hypothyroidism, adhesive capsulitis, PATY, Barretts esophagus and chronic back pain who is admitted for evaluation of syncope. PLAN: Syncope: I strongly suspect that her syncope may have been a result of polypha rmacy though cardiac etiologies are under investigation and should be ruled out especially with known moderate pulmonary hypertension and recent edema and history of a chronic systolic murmur. -At least 24h of telemetry, if negative by 9.17 AM without further episodes, will consider discharge home with close follow up with Dr. Pace -Does have orthostatics that change but could not explain a syncopal episode -Spoke with Dr. Santamaria who is covering their practice and he will get back to me about her precise cardiac history as there was mention of moderate pulm HTN and she has a murmur and was recently given a short course of loop diuretics for peripheral edema -f/u TTE -PT for HSE -The issue with a her polypharmacy is that it is all driven by PRN medications that can all be dosed up to 4 times daily and on a day that she takes vicodin, ativan, tizanidine etc, she surely could syncopize. I am going to begin the revising her medications: 1. I will discontinue the dexamethasone that is low dose and at this time the risks for peripheral edema, debility has outweight the desired antinflammatory effect for her orthopedic complaints. 2. I will de-escalate her lorazepam from QIDP to BIDP and she will need further downtitration by her PCP 3. At this time, I will continue her narcotic therapy but I will refer her to the pain clinic as she reports reduced desired effect over the years that she has been on it 4. I will reduce tizanidine to TIDP from QIDP Migraines -rizatriptan -is due in a 2w to get her botox injection in neurology clinic Chronic HFpEF / Moderate Pulm HTN / Moderate mitral insufficiency -According to the patient she was on Lasix but felt unwell when she took the medication -f/u TTE Essential HTN -continue alskiren, clonidine IBS-D -dicyclomine Hypothyroidism -continue levothyroxine -check free t4 given the elevated TSH, may need dose adjustment PATY -reduced lorazepam to BIDP and continued atarax QIDP Class 3 obesity -complicates care DVT px w lovenox Dispo: likely home tomorrow VS,Carlos, I+O VS, Carlos, I+O Laboratory Tests 01/17/21 00:41 01/17/21 08:58 Vital Signs Date Time Temp Pulse Resp B/P (MAP) Pulse Ox O2 Delivery O2 Flow Rate FiO2 01/17/21 14:42 93 145/74 (97) 97 157/83 (107) 103 202/110 (140) 01/17/21 14:00 98.5 16 99 Room Air I&O- Last 24 Hours up to 6 AM 01/17/21 06:00 Intake Total 0 ml Balance 0 ml DIANE VARGAS MD Jan 17, 2021 17:43
[2021-01-17 22:00] VITALS: BP 179/104
[2021-01-17 22:15] VITALS: BP_SYST 177; BP_SYST 202; BP_SYST 209; BP_DIAS 101; BP_DIAS 113; BP_DIAS 114
[2021-01-18 01:03] VITALS: BP 158/93
[2021-01-18] MEDS: FIORICET TAB PO PRN ×2 (01:08→10:32)
[2021-01-18] MEDS: LORazepam 1 MG TAB PO PRN ×2 (01:09→08:17)
[2021-01-18] MEDS: LEVOTHYROXINE 100MCG TABLET (0.1MG) PO SCH (05:34)
[2021-01-18] MEDS: ANEXSIA, NORCO 7.5MG/325MG TABLET(HYDROCODONE/APAP) PO PRN (05:35)
[2021-01-18 05:49] LABS: HEMATOCRIT 38.2 % (36.0-47.0); MEAN CORPUSCULAR HEMOGLOBIN 27.5 pg (27.0-33.0); MEAN CORPUSCULAR HGB CONC 31.4 g/dl (32.0-36.5); MEAN CORPUSCULAR VOLUME 87.6 fl (80.0-96.0); PLATELET COUNT, AUTOMATED 356 10^3/uL (150-450); RED BLOOD COUNT 4.36 10^6/uL (4.00-5.40); WHITE BLOOD COUNT 4.9 10^3/uL (4.0-10.0)
[2021-01-18 06:00] VITALS: BP_SYST 163; BP_SYST 170; BP_SYST 202; BP_DIAS 116; BP_DIAS 128; BP_DIAS 90
[2021-01-18] MEDS: PROMETHAZINE 25 MG TAB PO PRN ×2 (06:12→10:25)
[2021-01-18 06:19] LABS: BLOOD UREA NITROGEN 7 MG/DL (7-18); CALCIUM LEVEL 8.8 MG/DL (8.5-10.1); CARBON DIOXIDE LEVEL 24 MEQ/L (21-32); CHLORIDE LEVEL 110 MEQ/L (98-107); CREATININE FOR GFR 0.71 MG/DL (0.55-1.30); GLOMERULAR FILTRATION RATE > 60.0 (>51); GLUCOSE, FASTING 103 MG/DL (70-100); NT-PRO BNP 63 PG/ML (<125); POTASSIUM SERUM 3.6 MEQ/L (3.5-5.1); SODIUM LEVEL 142 MEQ/L (136-145)
[2021-01-18] MEDS: CO-ENZYME Q10 50 MG CAP PO SCH (07:02)
[2021-01-18] MEDS: ENOXAPARIN 40MG/0.4ML SYRINGE (J1650 PER 10MG) SC SCH (07:02)
[2021-01-18] MEDS: LORATADINE 10 MG TAB PO SCH (07:03)
[2021-01-18] MEDS: FAMOTIDINE 20 MG TAB PO SCH (07:03)
[2021-01-18] MEDS: OMEPRAZOLE 20 MG CAP PO SCH (07:03)
[2021-01-18 07:04] VITALS: BP 171/79
[2021-01-18] MEDS: cloNIDine 0.1MG TABLET PO SCH (07:04)
[2021-01-18 08:22] VITALS: BP 136/66
[2021-01-18] MEDS ORDERED: ATIV1TAB7 PO (09:05)
--- NOTE | 2021-01-18 10:43 | DS.PDOC ---
Discharge Summary General Date of Admission Jan 16, 2021 at 23:48 Date of Discharge 01/18/2021 Attending Physician: DIANE VARGAS MD Discharge Summary PROCEDURES PERFORMED DURING STAY: None ADMITTING DIAGNOSES: Syncope DISCHARGE DIAGNOSES: Syncope likely iatrogenic 2/2 polypharmacy, though she warrants further outpatient cardiac workup Migraines Moderate Pulm HTN Moderate mitral insufficiency Essential HTN with episodes of hypertensive urgency Chronic HFpEF (Grade 2) IBS-D Hypothyroidism Right shoulder adhesive capsulitis PATY Barretts esophagus Chronic back pain COMPLICATIONS/CHIEF COMPLAINT: Syncope. HISTORY OF PRESENT ILLNESS: Over the last few months has not been feeling well. She reports gaining water weight and was evaluated by and was briefly placed on loop diuretics. The evening before she presented while preparing to eat dinner her found her on the floor passed out. cant remember how she ended up on the floor. She remembered seeing cabin furnishings installer in her house but had difficulties remembering all of the events leading up to her arrival in the ER. This was the first time she has lost consciousness. She denied vomiting, denies eating or drinking less than usual, denies having a change in her chronic epi sodic chest pain & denied any changes in her chronic shortness of breath. Of note she had 3 migraines on the day of presentation which is atypical and after each episode had loose stools, and she managed with her various medications. She has a history of chronic back pain, with a history of multiple orthopedic surgeries on chronic scaled vicodin, as well as tizanidine but for PATY also has ativan, hydroxyzine and also has fioricet for the migraines and takes BID clonidine for HTN. She was unable to give me a crisp history of the medications she had taken given the 3 headache episodes that day, since these medications are ordered mostly as PRNs. HOSPITAL COURSE: She was admitted to medicine for observation after the syncopal episode without any noted further syncopal episodes. EKG was within normal limits, troponin negative, proBNP wnl, TSH high with a normal freeT4 and she had mild LE edema and otherwise euvolemic and breathing comfortably on room air. I spoke with Dr. Santamaria who was covering for the [facility] group given that she is a Dr. Pace patient about the background cardiac history and did not receive feedback yet on her history. I otherwise did find out that she has HFpEF, moderate pulmonary HTN and a chronic systolic murmur at RUSB. I ordered a TTE and it was done but the read was not yet available. Telemetry was unremarkable and she remained in sinus rhythm. Her course was c/b HTN that was manageable by her home clonidine per baseline dosing. Syncope: I strongly suspect that her syncope may have been a result of polypharmacy though cardiac etiologies should continue investigation and should be ruled out especially with known moderate pulmonary hypertension and recent edema and history of a chronic systolic murmur and thus should closely follow up with Dr. Pace within the next week. The issue with her degree of polypharmacy is that it is all driven by PRN medications that can all be dosed up to 4 times daily and on a day that she takes vicodin, ativan, ti zanidine etc, she surely could syncopize. I therefore began revising her medications and discontinued the dexamethasone that is low dose and at this time the risks for peripheral edema, debility have outweighed the desired antinflammatory effect for her orthopedic complaints.I de-escalated her loraz epam from QIDP to BIDP and she will need further downtitration by her PCP as indicated, or at least have fixed dosing if needed in significant doses. At this time, I will continue her narcotic therapy but I will refer her to the pain clinic as she reports reduced desired effect over the years that she has been on it. DISCHARGE MEDICATIONS: Please see below. ALLERGIES: Please see below. PHYSICAL EXAMINATION ON DISCHARGE: VITAL SIGNS: Please see below. GENERAL APPEARANCE: well-nourished and developed, obese HEENT: EOMI, MMM, CARDIOVASCULAR: RRR, systolic murmur at 2nd right intercoastal space at sternal border LUNGS: CTAB on RA ABDOMEN: Normoactive, soft, NTND INTEGUMENT: not cyanotic, flushed or diaphoretic NEUROLOGICAL: CN 3-12 grossly intact / speech not dysarthric PSYCHIATRIC: A&O x 3 / able to understand and follow all commands LABORATORY DATA: Please see below. IMAGING: CTA chest IMPRESSION: 1. No evidence of acute pulmonary embolus. 2. No other acute or concerning focal intrathoracic abnormality. CT head IMPRESSION: No acute or concerning focal intracranial abnormality. CT cervical spine IMPRESSION: No acute fracture or traumatic segmental cervical malalignment. MICROBIOLOGY: Respiratory panel neg PROGNOSIS: Good ACTIVITY: As tolerated DIET: 2g sodium DISCHARGE PLAN: Home DISPOSITION: Home DISCHARGE INSTRUCTIONS: Home with reduction of ativan to BID PRN, to stop dexamethasone and to follow up with Dr. Pace promptly for further syncope workup as well as referred to pain management. ITEMS TO FOLLOWUP ON ON OUTPATIENT: Syncope Chronic pain management Polypharmacy optimization DISCHARGE CONDITION: Stable TIME SPENT ON DISCHARGE: 50 minutes. Vital Signs/I&Os Vital Signs Date Time Temp Pulse Resp B/P (MAP) Pulse Ox O2 Delivery O2 Flow Rate FiO2 01/18/21 08:22 82 136/66 (89) 01/18/21 06:05 20 Room Air 01/18/21 06:00 97.3 100 I&O- Last 24 Hours up to 6 AM0 01/18/21 06:00 Intake Total 935 ml Balance 935 ml Laboratory Data Labs 24H Laboratory Tests 2 01/18/21 05:27: Nucleated Red Blood Cells % (auto) 0.0, Anion Gap 8, Glomerular Filtration Rate > 60.0, Calcium Level 8.8, ZL-Iob-V-Type Natriuretic Peptide 63, Free Thyroxine 1.10 CBC/BMP Laboratory Tests 01/18/21 05:27 Discharge Medications Scheduled Aliskiren Hemifumarate (Tekturna) 300 Mg Tab, 300 MG PO QPM, (Reported) TAKES AT 1600 Clonidine HCl (Clonidine HCl) 0.2 Mg Tab, 0.1 MG PO BID, (Reported) HOLD IF SBP<140 Famotidine (Famotidine) 40 Mg Tablet, 40 MG PO BID, (Reported) Fremanezumab-Vfrm (Ajovy) 225 Mg/1.5 Ml Syringe, 225 MG SC QMONTH, (Reported) Lansoprazole (Lansoprazole) 30 Mg Capsule.dr, 30 MG PO BID, (Reported) Levothyroxine Sodium (Synthroid) 100 Mcg Tablet, 100 MCG PO DAILY, (Reported) Loratadine (Claritin) 10 Mg Tablet, 10 MG PO DAILY, (Reported) Ubidecarenone (Co Q-10) 50 Mg Capsule, 50 MG PO DAILY, (Reported) Scheduled PRN Butalb/Acetaminophen/Caffeine (Fioricet 50-300-40 mg Capsule) 1 Each Capsule, 1 CAP PO QID PRN for HEADACHE, (Reported) Carboxymethylcellulose Sodium (Refresh Tears) 15 Ml Drops, 1 DROP OU QID PRN for DRY EYES, (Reported) Chlorpheniramine Maleate (Chlor-Trimeton) 4 Mg Tablet, 4 MG PO QID PRN for ALLERGY SYMPTOMS, (Reported) Dicyclomine HCl (Dicyclomine HCl) 20 Mg Tab, 20 MG PO QID PRN for CRAMPS, (Reported) Hydrocodone/Acetaminophen (Hydrocodone-Acetamin 10-325 mg) 1 Each Tablet, 1 TAB PO QID PRN for MODERATE PAIN (PS 5-7), (Reported) Hydrocodone/Acetaminophen (Hydrocodone-Acetamin 10-325 mg) 1 Each Tablet, 2 TAB PO QID PRN for SEVERE PAIN (PS 8-10), (Reported) Hydroxyzine HCl (Hydroxyzine HCl) 50 Mg Tablet, 50 MG PO QID PRN for ANXIETY, (Reported) Lactase (Lactaid) 3,000 Unit Tablet, 3,000 UNIT PO ASDIRECTED PRN for LACTOSE INTOLERANCE, (Reported) Lorazepam (Ativan) 1 Mg Tablet, 1 MG PO BIDP PRN for ANXIETY Tizanidine HCl (Tizanidine HCl) 4 Mg Tablet, 2 MG PO QID PRN for MUSCLE SPASMS, (Reported) Allergies Coded Allergies: DILIA Inhibitors (Verified Allergy, Unknown, 01/17/21) bacitracin (Verified Allergy, Unknown, 01/17/21) latex (Verified Allergy, Unknown, 01/17/21) neomycin (Verified Allergy, Unknown, 01/17/21) polymyxin B (Verified Allergy, Unknown, 01/17/21) rizatriptan (Verified Adverse Reaction, Severe, CHEST TIGHTENING, 01/17/21) sumatriptan (Verified Adverse Reaction, Intermediate, BODY ACHES, 01/17/21) DIANE VARGAS MD Jan 18, 2021 09:31
== END 2021-01-18 12:35 | disposition home or self-care (01) ==
LOC: M ED 23:47 → M ED INP 23:48 → ENRESERV 01-17 04:58 → M MSPAV 01-17 06:50
PROVIDERS: ADMIT Internal Medicine; ATTEND Internal Medicine
DX: R55 Syncope and collapse (principal); G43.909 Migraine, unspecified, not intractable, without status migrainosus; I27.20 Pulmonary hypertension, unspecified; I34.0 Nonrheumatic mitral (valve) insufficiency; I11.0 Hypertensive heart disease with heart failure; I16.0 Hypertensive urgency; I50.30 Unspecified diastolic (congestive) heart failure; K58.0 Irritable bowel syndrome with diarrhea; E03.9 Hypothyroidism, unspecified; M75.01 Adhesive capsulitis of right shoulder; F41.1 Generalized anxiety disorder; K22.70 Barrett's esophagus without dysplasia; M54.9 Dorsalgia, unspecified; R01.1 Cardiac murmur, unspecified; R60.0 Localized edema; Z79.899 Other long term (current) drug therapy; Z88.8 Allergy status to other drugs, medicaments and biological substances; Z88.1 Allergy status to other antibiotic agents; Z91.040 Latex allergy status; Z87.891 Personal history of nicotine dependence
CPT/HCPCS: 36415; 70450; 71275; 72125; 80048; 80076; 82550; 82553; 83880; 84439; 84443; 85025; 85027; 87631; 90471; 90682; 93005; 93041; 94760; 96372; 97116; 97161; 99285; J1650; Q9967

== ENCOUNTER → 2021-06-05 | Outpatient (CLI) | payer BC ==
[~2021-06-05] MED LIST changes: +AJOV225I SC; +ATIV1TAB7 PO; +CHLO4TAB PO; +CLAR10TA7 PO; +COQ150CA PO; +DEXA2TA PO; +FAMO40TA3 PO; +FIOR1CAP PO; +HYDR-4517 PO; +HYDR50TA70 PO; +LACT3000 PO; +LANS30CA PO; +REFR0.5D8 OU; +SYNT100T PO; +TIZA10TA PO
== END ==
LOC: M RAD 15:23
PROVIDERS: ATTEND Internal Medicine
DX: M43.13 Spondylolisthesis, cervicothoracic region (principal)

== ENCOUNTER → 2021-06-05 | Outpatient (CLI) | payer BC ==
[2021-06-05 16:27] LABS: BASO % 0.6 % (0.0-1.0); EOS # 0.3 10^3/uL (0.0-0.5); EOS % 5.5 % (0.0-3.0); HEMATOCRIT 37.6 % (36.0-47.0); HEMOGLOBIN 11.9 g/dl (12.0-15.5); LYMPH # 2.3 10^3/uL (1.5-5.0); LYMPH % 48.1 % (24.0-44.0); MEAN CORPUSCULAR HEMOGLOBIN 28.3 pg (27.0-33.0); MEAN CORPUSCULAR HGB CONC 31.6 g/dl (32.0-36.5); MEAN CORPUSCULAR VOLUME 89.5 fl (80.0-96.0); MONO # 0.6 10^3/uL (0.0-0.8); MONO % 12.5 % (2.0-8.0); NEUTROPHILS # 1.6 10^3/uL (1.5-8.5); NEUTROPHILS % 33.1 % (36.0-66.0); PLATELET COUNT, AUTOMATED 370 10^3/uL (150-450); WHITE BLOOD COUNT 4.7 10^3/uL (4.0-10.0)
[2021-06-05 16:54] LABS: ALBUMIN 3.9 GM/DL (3.2-5.2); ALT/SGPT 36 U/L (12-78); BILIRUBIN,TOTAL 0.2 MG/DL (0.2-1.0); BLOOD UREA NITROGEN 9 MG/DL (7-18); CARBON DIOXIDE LEVEL 24 MEQ/L (21-32); CHLORIDE LEVEL 104 MEQ/L (98-107); CREATININE FOR GFR 0.83 MG/DL (0.55-1.30); FREE T4 0.87 NG/DL (0.76-1.46); GLOMERULAR FILTRATION RATE > 60.0 (>45); GLUCOSE, FASTING 92 MG/DL (70-100); POTASSIUM SERUM 4.2 MEQ/L (3.5-5.1); SODIUM LEVEL 136 MEQ/L (136-145); TOTAL 25(OH) VITAMIN D 26.2 NG/ML (30.0-100.0); TOTAL PROTEIN 7.1 GM/DL (6.4-8.2); VITAMIN B12 LEVEL 317 PG/ML
[2021-06-05 16:55] LABS: FOLATE 4.8 NG/ML
== END ==
LOC: M LAB 15:28
PROVIDERS: ATTEND Psychiatry & Neurology Neurology
DX: R51.9 Headache, unspecified (principal); R55 Syncope and collapse

== ENCOUNTER → 2021-08-01 | Outpatient (CLI) | payer BC ==
[2021-08-01 16:34] LABS: BASO % 0.5 % (0.0-1.0); EOS # 0.3 10^3/uL (0.0-0.5); EOS % 5.1 % (0.0-3.0); HEMATOCRIT 40.9 % (36.0-47.0); HEMOGLOBIN 13.2 g/dl (12.0-15.5); LYMPH # 2.6 10^3/uL (1.5-5.0); LYMPH % 43.5 % (24.0-44.0); MEAN CORPUSCULAR HEMOGLOBIN 28.9 pg (27.0-33.0); MEAN CORPUSCULAR HGB CONC 32.3 g/dl (32.0-36.5); MEAN CORPUSCULAR VOLUME 89.5 fl (80.0-96.0); MONO # 0.7 10^3/uL (0.0-0.8); MONO % 11.1 % (2.0-8.0); NEUTROPHILS # 2.3 10^3/uL (1.5-8.5); NEUTROPHILS % 39.6 % (36.0-66.0); PLATELET COUNT, AUTOMATED 322 10^3/uL (150-450); RED BLOOD COUNT 4.57 10^6/uL (4.00-5.40); WHITE BLOOD COUNT 5.9 10^3/uL (4.0-10.0)
[2021-08-01 17:07] LABS: ALBUMIN 4.1 GM/DL (3.2-5.2); ALT/SGPT 42 U/L (12-78); BILIRUBIN,TOTAL 0.3 MG/DL (0.2-1.0); BLOOD UREA NITROGEN 13 MG/DL (7-18); CALCIUM LEVEL 9.3 MG/DL (8.8-10.2); CARBON DIOXIDE LEVEL 26 MEQ/L (21-32); CHLORIDE LEVEL 103 MEQ/L (98-107); CREATININE FOR GFR 0.95 MG/DL (0.55-1.30); FREE T4 0.76 NG/DL (0.76-1.46); GLOMERULAR FILTRATION RATE > 60.0 (>45); GLUCOSE, FASTING 90 MG/DL (70-100); POTASSIUM SERUM 4.5 MEQ/L (3.5-5.1); SODIUM LEVEL 136 MEQ/L (136-145); TOTAL 25(OH) VITAMIN D 34.1 NG/ML (30.0-100.0); TOTAL PROTEIN 7.3 GM/DL (6.4-8.2); VITAMIN B12 LEVEL 697 PG/ML
[2021-08-01 17:09] LABS: FOLATE 12.1 NG/ML
== END ==
LOC: M LAB 15:40
PROVIDERS: ATTEND Internal Medicine
DX: E03.9 Hypothyroidism, unspecified (principal); I10 Essential (primary) hypertension; E55.9 Vitamin D deficiency, unspecified

== ENCOUNTER → 2021-10-29 | Outpatient (CLI) | payer BC ==
[~2021-10-29] MED LIST changes: +ALBU2.5V10 INH; +ECOT81TA5 PO; +GINS100C PO; +HYDR4TAB PO; +NEUR600T PO; +ROSU5TAB5 PO
[2021-10-29 16:49] LABS: BASO % 0.4 % (0.0-1.0); EOS # 0.2 10^3/uL (0.0-0.5); EOS % 3.2 % (0.0-3.0); HEMATOCRIT 43.4 % (36.0-47.0); HEMOGLOBIN 13.8 g/dl (12.0-15.5); LYMPH # 1.8 10^3/uL (1.5-5.0); LYMPH % 36.1 % (24.0-44.0); MEAN CORPUSCULAR HEMOGLOBIN 29.1 pg (27.0-33.0); MEAN CORPUSCULAR HGB CONC 31.8 g/dl (32.0-36.5); MEAN CORPUSCULAR VOLUME 91.4 fl (80.0-96.0); MONO # 0.4 10^3/uL (0.0-0.8); MONO % 7.7 % (2.0-8.0); NEUTROPHILS # 2.6 10^3/uL (1.5-8.5); NEUTROPHILS % 52.4 % (36.0-66.0); PLATELET COUNT, AUTOMATED 337 10^3/uL (150-450); RED BLOOD COUNT 4.75 10^6/uL (4.00-5.40)
[2021-10-29 17:18] LABS: ALBUMIN 3.8 GM/DL (3.2-5.2); ALT/SGPT 27 U/L (12-78); BILIRUBIN,TOTAL 0.3 MG/DL (0.2-1.0); BLOOD UREA NITROGEN 12 MG/DL (7-18); CALCIUM LEVEL 9.1 MG/DL (8.8-10.2); CARBON DIOXIDE LEVEL 27 MEQ/L (21-32); CHLORIDE LEVEL 105 MEQ/L (98-107); CHOLESTEROL LEVEL 259 MG/DL (<200); CHOLESTEROL RISK RATIO 4.543 (<5); CREATININE FOR GFR 0.87 MG/DL (0.55-1.30); FREE T4 0.64 NG/DL (0.76-1.46); GLOMERULAR FILTRATION RATE > 60.0 (>45); GLUCOSE, FASTING 89 MG/DL (70-100); HDL CHOLESTEROL 57 MG/DL (>40); LDL CHOLESTEROL 156 MG/DL (<100); NON-HDL-C 202 MG/DL; POTASSIUM SERUM 4.4 MEQ/L (3.5-5.1); SODIUM LEVEL 137 MEQ/L (136-145); TOTAL PROTEIN 7.1 GM/DL (6.4-8.2); TRIGLYCERIDES LEVEL 232 MG/DL (<150)
[2021-10-29 18:01] LABS: TOTAL 25(OH) VITAMIN D 30.5 NG/ML (30.0-100.0)
== END ==
LOC: M LAB 16:19
PROVIDERS: ATTEND Internal Medicine
DX: E03.9 Hypothyroidism, unspecified (principal)

== ENCOUNTER → 2021-11-06 | Outpatient (CLI) | payer BC ==
[~2021-11-06] MED LIST changes: -LACT3000 PO; +LACT30006 PO
== END ==
LOC: M LABSMTC 09:44
PROVIDERS: ATTEND Anesthesiology
DX: Z01.812 Encounter for preprocedural laboratory examination (principal); Z11.52 Encounter for screening for COVID-19

== ENCOUNTER 2021-11-15 14:12 | Emergency (ER) | payer BC ==
[2021-11-15] MEDS ORDERED: ONDANSETRON 4MG ORAL DISINTEGRATING TAB PO ONE (15:20)
[2021-11-15] MEDS ORDERED: MORPHINE 10 MG/ML 1ML VIAL IM ONE (15:20)
[2021-11-15] MEDS ORDERED: HYDROMORPHONE HCL 0.5 MG/ 0.5 ML SYRINGE (J1170 PER 1) IV ONE (17:25)
[2021-11-15 20:10] VITALS: BP 126/78
== END 2021-11-15 20:16 | disposition home or self-care (01) ==
LOC: EDBD 14:12 → M ED 14:12
DX: S42.352A Displaced comminuted fracture of shaft of humerus, left arm, initial encounter for closed fracture (principal); W18.2XXA Fall in (into) shower or empty bathtub, initial encounter; Y92.009 Unspecified place in unspecified non-institutional (private) residence as the place of occurrence of the external cause; M25.552 Pain in left hip; M25.522 Pain in left elbow; Z79.82 Long term (current) use of aspirin; Z79.899 Other long term (current) drug therapy; Z79.51 Long term (current) use of inhaled steroids; Z79.891 Long term (current) use of opiate analgesic; Z88.1 Allergy status to other antibiotic agents; Z88.8 Allergy status to other drugs, medicaments and biological substances; Z91.040 Latex allergy status; Z96.643 Presence of artificial hip joint, bilateral
CPT/HCPCS: 70450; 71250; 73030; 73080; 73502; 96372; 96374; 99284; J1170; J2270

== ENCOUNTER → 2021-11-19 | Outpatient (CLI) | payer BC | LOC: M SOG 13:19 | PROVIDERS: ATTEND Orthopaedic Surgery Adult Reconstructive Orthopaedic Surgery | DX: Z47.89 Encounter for other orthopedic aftercare (principal) ==

== ENCOUNTER → 2021-11-29 | Outpatient (CLI) | payer BC | LOC: M SOG 08:00 | PROVIDERS: ATTEND Orthopaedic Surgery Adult Reconstructive Orthopaedic Surgery | DX: S42.232A 3-part fracture of surgical neck of left humerus, initial encounter for closed fracture (principal) ==

== ENCOUNTER → 2021-12-18 | Outpatient (CLI) | payer BC | LOC: M SOG 09:53 | PROVIDERS: ATTEND Orthopaedic Surgery Adult Reconstructive Orthopaedic Surgery | DX: S42.232D 3-part fracture of surgical neck of left humerus, subsequent encounter for fracture with routine healing (principal); W18.30XD Fall on same level, unspecified, subsequent encounter; Y92.009 Unspecified place in unspecified non-institutional (private) residence as the place of occurrence of the external cause ==

== ENCOUNTER → 2022-01-03 | Outpatient (CLI) | payer BC ==
[~2022-01-03] MED LIST changes: -MAXA10TA14 PO; +RIZA10TA64 PO
== END ==
LOC: M SOG 08:23
PROVIDERS: ATTEND Orthopaedic Surgery Adult Reconstructive Orthopaedic Surgery
DX: S42.232D 3-part fracture of surgical neck of left humerus, subsequent encounter for fracture with routine healing (principal); M25.561 Pain in right knee; M25.562 Pain in left knee

== ENCOUNTER → 2022-03-05 | Outpatient (CLI) | payer BC ==
[2022-03-05 18:05] LABS: BASO % 0.8 % (0.0-1.0); EOS # 0.2 10^3/uL (0.0-0.5); EOS % 3.8 % (0.0-3.0); HEMATOCRIT 42.1 % (36.0-47.0); HEMOGLOBIN 13.3 g/dl (12.0-15.5); LYMPH # 2.3 10^3/uL (1.5-5.0); LYMPH % 46.1 % (24.0-44.0); MEAN CORPUSCULAR HEMOGLOBIN 28.6 pg (27.0-33.0); MEAN CORPUSCULAR HGB CONC 31.6 g/dl (32.0-36.5); MEAN CORPUSCULAR VOLUME 90.5 fl (80.0-96.0); MONO # 0.5 10^3/uL (0.0-0.8); MONO % 9.3 % (2.0-8.0); NEUTROPHILS % 39.8 % (36.0-66.0); PLATELET COUNT, AUTOMATED 306 10^3/uL (150-450); RED BLOOD COUNT 4.65 10^6/uL (4.00-5.40); WHITE BLOOD COUNT 5.1 10^3/uL (4.0-10.0)
[2022-03-05 19:09] LABS: ALT/SGPT 36 U/L (12-78); BILIRUBIN,TOTAL 0.3 MG/DL (0.2-1.0); BLOOD UREA NITROGEN 8 MG/DL (7-18); CALCIUM LEVEL 9.3 MG/DL (8.8-10.2); CARBON DIOXIDE LEVEL 24 MEQ/L (21-32); CHLORIDE LEVEL 102 MEQ/L (98-107); CREATININE FOR GFR 0.91 MG/DL (0.55-1.30); FREE T4 0.87 NG/DL (0.76-1.46); GLOMERULAR FILTRATION RATE > 60.0 (>45); GLUCOSE, FASTING 92 MG/DL (70-100); POTASSIUM SERUM 4.2 MEQ/L (3.5-5.1); SODIUM LEVEL 134 MEQ/L (136-145); TOTAL PROTEIN 7.3 GM/DL (6.4-8.2)
== END ==
LOC: M LAB 16:51
PROVIDERS: ATTEND Internal Medicine
DX: I10 Essential (primary) hypertension (principal)

== ENCOUNTER → 2022-05-07 | Outpatient (CLI) | payer BC | LOC: M SOG 14:58 | PROVIDERS: ATTEND Orthopaedic Surgery Adult Reconstructive Orthopaedic Surgery | DX: S42.232D 3-part fracture of surgical neck of left humerus, subsequent encounter for fracture with routine healing (principal); W18.30XD Fall on same level, unspecified, subsequent encounter ==

== ENCOUNTER → 2022-06-25 | Outpatient (CLI) | payer BC ==
[~2022-06-25] MED LIST changes: +BACL10TA2 PO
== END ==
LOC: M LABSMTC 10:21
PROVIDERS: ATTEND Anesthesiology
DX: Z01.818 Encounter for other preprocedural examination (principal); Z11.52 Encounter for screening for COVID-19

== ENCOUNTER 2022-06-30 13:13 | Day surgery (SDC) | payer BC ==
[~2022-06-30] VITALS: Ht 162.6 cm; Wt 103.4 kg
[~2022-06-30 13:13] MED LIST changes: +NS 1,000 ML IV ONE
[2022-06-30] MEDS ORDERED: LIDOCAINE 2% 100MG/5ML SDV (FOR ANES.) As Ordered ONE (14:56)
[2022-06-30] MEDS ORDERED: propofoL 200 MG/20 ML VIAL As Ordered ONE (14:56)
[2022-06-30] MEDS ORDERED: ONDANSETRON 4MG 2ML VIAL IV STA (16:19)
[2022-06-30 16:27] VITALS: BP 160/79
== END 2022-06-30 16:37 | disposition home or self-care (01) ==
LOC: M OPP 13:13
PROVIDERS: ATTEND Internal Medicine Gastroenterology
DX: Z12.11 Encounter for screening for malignant neoplasm of colon (principal); Z86.010 Personal history of colon polyps; K64.0 First degree hemorrhoids; K44.9 Diaphragmatic hernia without obstruction or gangrene; K29.60 Other gastritis without bleeding; I10 Essential (primary) hypertension; E03.9 Hypothyroidism, unspecified; Z79.51 Long term (current) use of inhaled steroids; Z79.899 Other long term (current) drug therapy; Z88.1 Allergy status to other antibiotic agents; Z88.8 Allergy status to other drugs, medicaments and biological substances; Z91.040 Latex allergy status; Z87.19 Personal history of other diseases of the digestive system
CPT/HCPCS: 43239; 45378; 88305; J2405

== ENCOUNTER → 2022-09-17 | Outpatient (CLI) | payer OTHER ==
[~2022-09-17] MED LIST changes: +LORA1TAB23 PO; -LORA1TAB4 PO; -NS 1,000 ML IV ONE
[2022-09-17 17:32] LABS: BASO % 0.6 % (0.0-1.0); EOS # 0.2 10^3/uL (0.0-0.5); EOS % 4.3 % (0.0-3.0); HEMOGLOBIN 12.8 g/dl (12.0-15.5); LYMPH # 2.6 10^3/uL (1.5-5.0); LYMPH % 52.7 % (24.0-44.0); MEAN CORPUSCULAR HEMOGLOBIN 30.3 pg (27.0-33.0); MEAN CORPUSCULAR HGB CONC 31.2 g/dl (32.0-36.5); MEAN CORPUSCULAR VOLUME 96.9 fl (80.0-96.0); MONO # 0.5 10^3/uL (0.0-0.8); MONO % 9.4 % (2.0-8.0); NEUTROPHILS # 1.6 10^3/uL (1.5-8.5); NEUTROPHILS % 32.8 % (36.0-66.0); PLATELET COUNT, AUTOMATED 307 10^3/uL (150-450); RED BLOOD COUNT 4.23 10^6/uL (4.00-5.40); WHITE BLOOD COUNT 4.9 10^3/uL (4.0-10.0)
[2022-09-17 17:55] LABS: AMYLASE 54 U/L (30-118); LIPASE 28 U/L (12-53)
[2022-09-17 17:56] LABS: IRON (FE) 113 UG/DL (50-170)
[2022-09-17 17:57] LABS: ALBUMIN 3.8 G/DL (3.2-5.2); ALKALINE PHOSPHATASE 87 U/L (46-116); ALT/SGPT 36 U/L (7.0-40); AST/SGOT 20 U/L (<34); BILIRUBIN,TOTAL 0.3 MG/DL (0.3-1.2); BLOOD UREA NITROGEN 10 MG/DL (9-23); CALCIUM LEVEL 8.8 MG/DL (8.3-10.6); CARBON DIOXIDE LEVEL 29 MMOL/L (20-31); CHLORIDE LEVEL 104 MMOL/L (98-107); CHOLESTEROL LEVEL 216 MG/DL (<200); CHOLESTEROL RISK RATIO 3.52 (<5); CREATININE FOR GFR 0.79 MG/DL (0.55-1.30); GLOMERULAR FILTRATION RATE > 60.0 (>45); GLUCOSE, FASTING 79 MG/DL (74-106); HDL CHOLESTEROL 61.2 MG/DL (>40); LDL CHOLESTEROL 126.4 MG/DL (<100); MAGNESIUM LEVEL 1.9 MG/DL (1.8-2.4); NON-HDL-C 154.8 MG/DL; POTASSIUM SERUM 4.7 MMOL/L (3.5-5.1); SODIUM LEVEL 140 MMOL/L (136-145); THYROID STIMULATING HORMONE 1.629 uIU/ML (0.55-4.78); TOTAL 25(OH) VITAMIN D 29.6 NG/ML (20.0-100.0); TOTAL PROTEIN 6.5 G/DL (5.7-8.2); TRIGLYCERIDES LEVEL 142 MG/DL (<150); VITAMIN B12 LEVEL 604 PG/ML (211-911)
[2022-09-17 17:58] LABS: FREE T4 0.77 NG/DL (0.89-1.76)
== END ==
LOC: M PLALAB 15:52
PROVIDERS: ATTEND Nurse Practitioner Family
DX: E78.5 Hyperlipidemia, unspecified (principal)

== ENCOUNTER → 2023-01-15 | Outpatient (CLI) | payer OTHER ==
[~2023-01-15] MED LIST changes: -GABA-283 PO; +GABA-284 PO
[2023-01-15 16:19] LABS: ALKALINE PHOSPHATASE 97 U/L (46-116); ALT/SGPT 30 U/L (7.0-40); AST/SGOT 12 U/L (<34); BILIRUBIN,TOTAL 0.3 MG/DL (0.3-1.2); BLOOD UREA NITROGEN 9 MG/DL (9-23); CALCIUM LEVEL 9.2 MG/DL (8.3-10.6); CARBON DIOXIDE LEVEL 28 MMOL/L (20-31); CHLORIDE LEVEL 101 MMOL/L (98-107); CREATININE FOR GFR 0.72 MG/DL (0.55-1.30); GLOMERULAR FILTRATION RATE > 60.0 (>45); GLUCOSE, FASTING 90 MG/DL (74-106); POTASSIUM SERUM 4.9 MMOL/L (3.5-5.1); SODIUM LEVEL 137 MMOL/L (136-145); TOTAL PROTEIN 6.5 G/DL (5.7-8.2)
== END ==
LOC: M PLALAB 14:22
PROVIDERS: ATTEND Nurse Practitioner Family
DX: I10 Essential (primary) hypertension (principal)

== ENCOUNTER → 2023-01-16 | Outpatient (CLI) | payer OTHER ==
[~2023-01-16] MED LIST changes: +GASTROGRAFIN SOLUTION 30ML As Ordered ONE; +ISOVUE-370 76% 100ML VIAL As Ordered ONE
== END ==
LOC: M RAD 07:30
PROVIDERS: ATTEND Nurse Practitioner Family
DX: R11.2 Nausea with vomiting, unspecified (principal); R10.13 Epigastric pain
CPT/HCPCS: 74177; Q9963; Q9967

== ENCOUNTER → 2023-08-07 | Outpatient (CLI) | payer BC ==
[~2023-08-07] MED LIST changes: -GASTROGRAFIN SOLUTION 30ML As Ordered ONE; -ISOVUE-370 76% 100ML VIAL As Ordered ONE
== END ==
LOC: M PLAIMG 15:03
PROVIDERS: ATTEND Nurse Practitioner Family
DX: M54.50 Low back pain, unspecified (principal); W19.XXXA Unspecified fall, initial encounter; M43.26 Fusion of spine, lumbar region; R29.890 Loss of height; M25.552 Pain in left hip; Z96.642 Presence of left artificial hip joint

== ENCOUNTER → 2023-08-21 | Outpatient (CLI) | payer BC | LOC: M PLAIMG 13:43 | PROVIDERS: ATTEND Nurse Practitioner Family | DX: M79.605 Pain in left leg (principal) ==

== ENCOUNTER → 2023-10-29 | Outpatient (REF) | payer BC ==
[~2023-10-29] MED LIST changes: +ROSU5TAB40 PO; -ROSU5TAB5 PO
== END ==
LOC: M LAB REF 11:41
PROVIDERS: ATTEND Nurse Practitioner Family
DX: R10.9 Unspecified abdominal pain (principal)

== ENCOUNTER → 2023-11-03 | Outpatient (CLI) | payer MEDICARE | LOC: M PAIN 13:00 | PROVIDERS: ATTEND Nurse Practitioner Family | DX: M96.1 Postlaminectomy syndrome, not elsewhere classified (principal); M81.0 Age-related osteoporosis without current pathological fracture; I10 Essential (primary) hypertension; Z79.02 Long term (current) use of antithrombotics/antiplatelets; Z79.1 Long term (current) use of non-steroidal anti-inflammatories (NSAID); Z79.890 Hormone replacement therapy; Z79.891 Long term (current) use of opiate analgesic; Z79.899 Other long term (current) drug therapy; Z88.1 Allergy status to other antibiotic agents; Z88.6 Allergy status to analgesic agent; Z88.8 Allergy status to other drugs, medicaments and biological substances; Z91.040 Latex allergy status ==

== ENCOUNTER → 2023-11-10 | Outpatient (CLI) | payer BC | LOC: M PAIN 15:45 | PROVIDERS: ATTEND Anesthesiology | DX: M51.16 Intervertebral disc disorders with radiculopathy, lumbar region (principal); M96.1 Postlaminectomy syndrome, not elsewhere classified; M53.3 Sacrococcygeal disorders, not elsewhere classified; G89.29 Other chronic pain; F41.1 Generalized anxiety disorder; K22.70 Barrett's esophagus without dysplasia; R53.82 Chronic fatigue, unspecified; I10 Essential (primary) hypertension; M81.0 Age-related osteoporosis without current pathological fracture; M75.01 Adhesive capsulitis of right shoulder; Z79.899 Other long term (current) drug therapy; Z88.8 Allergy status to other drugs, medicaments and biological substances; Z91.040 Latex allergy status | CPT/HCPCS: 76000; G0463 ==

== ENCOUNTER → 2023-12-03 | Outpatient (CLI) | payer BC | LOC: M PLAIMG 13:35 | PROVIDERS: ATTEND Anesthesiology | DX: M53.3 Sacrococcygeal disorders, not elsewhere classified (principal) ==

== ENCOUNTER → 2023-12-03 | Outpatient (CLI) | payer BC ==
[2023-12-03 18:05] LABS: BASO % 0.5 % (0.0-1.0); EOS # 0.4 10^3/uL (0.0-0.5); EOS % 5.6 % (0.0-3.0); HEMATOCRIT 42.5 % (36.0-47.0); HEMOGLOBIN 13.5 g/dl (12.0-15.5); LYMPH % 40.8 % (24.0-44.0); MEAN CORPUSCULAR HEMOGLOBIN 30.2 pg (27.0-33.0); MEAN CORPUSCULAR HGB CONC 31.8 g/dl (32.0-36.5); MEAN CORPUSCULAR VOLUME 95.1 fl (80.0-96.0); MONO # 0.7 10^3/uL (0.0-0.8); MONO % 9.3 % (2.0-8.0); NEUTROPHILS # 3.2 10^3/uL (1.5-8.5); NEUTROPHILS % 43.5 % (36.0-66.0); PLATELET COUNT, AUTOMATED 332 10^3/uL (150-450); RED BLOOD COUNT 4.47 10^6/uL (4.00-5.40); WHITE BLOOD COUNT 7.4 10^3/uL (4.0-10.0)
[2023-12-03 18:36] LABS: FREE T4 0.94 NG/DL (0.89-1.76); THYROID STIMULATING HORMONE 4.859 uIU/ML (0.55-4.78)
[2023-12-03 18:37] LABS: ALBUMIN 4.2 G/DL (3.2-5.2); ALKALINE PHOSPHATASE 101 U/L (46-116); ALT/SGPT 46 U/L (7.0-40); AST/SGOT 45 U/L (<34); BILIRUBIN,TOTAL 0.2 MG/DL (0.3-1.2); BLOOD UREA NITROGEN 9 MG/DL (9-23); CALCIUM LEVEL 9.2 MG/DL (8.3-10.6); CARBON DIOXIDE LEVEL 26 MMOL/L (20-31); CHLORIDE LEVEL 100 MMOL/L (98-107); CREATININE FOR GFR 0.89 MG/DL (0.55-1.30); GLOMERULAR FILTRATION RATE > 60.0 (>45); GLUCOSE, FASTING 86 MG/DL (74-106); POTASSIUM SERUM 4.8 MMOL/L (3.5-5.1); SODIUM LEVEL 135 MMOL/L (136-145)
== END ==
LOC: M PLALAB 14:47
PROVIDERS: ATTEND Nurse Practitioner Family
DX: R79.89 Other specified abnormal findings of blood chemistry (principal); E03.9 Hypothyroidism, unspecified; I10 Essential (primary) hypertension

== ENCOUNTER → 2023-12-08 | Outpatient (CLI) | payer BC | LOC: M PAIN 15:00 | PROVIDERS: ATTEND Nurse Practitioner Family | DX: M79.18 Myalgia, other site (principal); M25.561 Pain in right knee; G89.29 Other chronic pain; M25.562 Pain in left knee; M25.511 Pain in right shoulder; M25.512 Pain in left shoulder; M54.2 Cervicalgia; M75.01 Adhesive capsulitis of right shoulder; F41.1 Generalized anxiety disorder; K22.70 Barrett's esophagus without dysplasia; R53.82 Chronic fatigue, unspecified; M43.12 Spondylolisthesis, cervical region; I10 Essential (primary) hypertension; M81.0 Age-related osteoporosis without current pathological fracture; Z79.890 Hormone replacement therapy; Z79.899 Other long term (current) drug therapy; Z79.891 Long term (current) use of opiate analgesic; Z91.040 Latex allergy status; Z88.8 Allergy status to other drugs, medicaments and biological substances ==

== ENCOUNTER → 2024-01-07 | Outpatient (CLI) | payer BC | LOC: M PAIN 15:00 | PROVIDERS: ATTEND Anesthesiology | DX: Z01.818 Encounter for other preprocedural examination (principal); M96.1 Postlaminectomy syndrome, not elsewhere classified; M48.061 Spinal stenosis, lumbar region without neurogenic claudication; M51.16 Intervertebral disc disorders with radiculopathy, lumbar region; G89.29 Other chronic pain; M75.01 Adhesive capsulitis of right shoulder; F41.1 Generalized anxiety disorder; K22.70 Barrett's esophagus without dysplasia; R53.82 Chronic fatigue, unspecified; I10 Essential (primary) hypertension; M81.0 Age-related osteoporosis without current pathological fracture; I34.1 Nonrheumatic mitral (valve) prolapse; Z79.890 Hormone replacement therapy; Z79.891 Long term (current) use of opiate analgesic; Z79.899 Other long term (current) drug therapy; Z88.8 Allergy status to other drugs, medicaments and biological substances; Z91.040 Latex allergy status ==

== ENCOUNTER → 2024-01-13 | Outpatient (CLI) | payer BC ==
[~2024-01-13] MED LIST changes: +ISOVUE-300 61% 100ML VIAL As Ordered ONE; +ISOVUE-M 300 61% 15ML VIAL As Ordered ONE; +LIDOCAINE 1% MDV 20ML VIAL As Ordered ONE; +MIDAZOLAM INJ 2MG/2ML VIAL As Ordered ONE; +dexAMETHasone 10MG/1ML VIAL PRES.FREE As Ordered ONE; +fentaNYL 100 MCG/2 ML INJECTION As Ordered ONE
[2024-01-13 08:00] VITALS: TEMP 98
[2024-01-13 10:15] VITALS: BP 145/68; O2SAT 99
== END ==
LOC: M IRPRO 07:47
PROVIDERS: ATTEND Anesthesiology
DX: M51.16 Intervertebral disc disorders with radiculopathy, lumbar region (principal)
CPT/HCPCS: 62323; 99152; 99153; J1100; J2250; J3010; Q9967

== ENCOUNTER → 2024-02-12 | Outpatient (CLI) | payer BC ==
[~2024-02-12] MED LIST changes: +GABA-1172 PO; -GABA-282 PO; -ISOVUE-300 61% 100ML VIAL As Ordered ONE; -ISOVUE-M 300 61% 15ML VIAL As Ordered ONE; -LIDOCAINE 1% MDV 20ML VIAL As Ordered ONE; -MIDAZOLAM INJ 2MG/2ML VIAL As Ordered ONE; -dexAMETHasone 10MG/1ML VIAL PRES.FREE As Ordered ONE; -fentaNYL 100 MCG/2 ML INJECTION As Ordered ONE
== END ==
LOC: M SOG 07:57
PROVIDERS: ATTEND Orthopaedic Surgery
DX: M25.512 Pain in left shoulder (principal)

== ENCOUNTER → 2024-02-15 | Outpatient (CLI) | payer BC | LOC: M SOG 08:09 | PROVIDERS: ATTEND Orthopaedic Surgery | DX: M25.561 Pain in right knee (principal); M25.562 Pain in left knee ==

== ENCOUNTER → 2024-02-16 | Outpatient (CLI) | payer BC ==
[~2024-02-16] MED LIST changes: +TRIAMCINOLONE ACETONIDE SUSP 40MG/ML 1ML VIAL As Ordered ONE
== END ==
LOC: M PAIN 13:00
PROVIDERS: ATTEND Anesthesiology
DX: M79.12 Myalgia of auxiliary muscles, head and neck (principal); G89.29 Other chronic pain; M75.01 Adhesive capsulitis of right shoulder; F41.1 Generalized anxiety disorder; K22.70 Barrett's esophagus without dysplasia; R53.82 Chronic fatigue, unspecified; I10 Essential (primary) hypertension; M81.0 Age-related osteoporosis without current pathological fracture; I34.1 Nonrheumatic mitral (valve) prolapse; M43.12 Spondylolisthesis, cervical region; Z79.891 Long term (current) use of opiate analgesic; Z91.040 Latex allergy status; Z79.899 Other long term (current) drug therapy; Z88.8 Allergy status to other drugs, medicaments and biological substances
CPT/HCPCS: 20552; J0665; J3301

== ENCOUNTER → 2024-02-17 | Outpatient (CLI) | payer BC ==
[~2024-02-17] MED LIST changes: -TRIAMCINOLONE ACETONIDE SUSP 40MG/ML 1ML VIAL As Ordered ONE
== END ==
LOC: M SOG 07:28
PROVIDERS: ATTEND Orthopaedic Surgery
DX: M25.512 Pain in left shoulder (principal)

== ENCOUNTER → 2024-02-29 | Outpatient (CLI) | payer BC | LOC: M SOG 07:30 | PROVIDERS: ATTEND Orthopaedic Surgery | DX: M25.512 Pain in left shoulder (principal) ==

== ENCOUNTER → 2024-03-01 | Outpatient (CLI) | payer BC | LOC: M PAIN 16:45 | PROVIDERS: ATTEND Anesthesiology | DX: M54.2 Cervicalgia (principal); G89.29 Other chronic pain; M79.10 Myalgia, unspecified site; M79.18 Myalgia, other site; M51.16 Intervertebral disc disorders with radiculopathy, lumbar region; F41.1 Generalized anxiety disorder; K22.70 Barrett's esophagus without dysplasia; R53.82 Chronic fatigue, unspecified; I10 Essential (primary) hypertension; M81.0 Age-related osteoporosis without current pathological fracture; M75.01 Adhesive capsulitis of right shoulder; Z79.891 Long term (current) use of opiate analgesic; Z79.899 Other long term (current) drug therapy; Z88.8 Allergy status to other drugs, medicaments and biological substances; Z91.040 Latex allergy status ==

== ENCOUNTER → 2024-04-19 | Outpatient (CLI) | payer BC ==
[~2024-04-19] MED LIST changes: -ROSU5TAB40 PO; +ROSU5TAB49 PO
== END ==
LOC: M PAIN 13:00
PROVIDERS: ATTEND Nurse Practitioner Family
DX: M96.1 Postlaminectomy syndrome, not elsewhere classified (principal); M48.061 Spinal stenosis, lumbar region without neurogenic claudication; M51.16 Intervertebral disc disorders with radiculopathy, lumbar region; G89.29 Other chronic pain; Z79.899 Other long term (current) drug therapy; Z88.1 Allergy status to other antibiotic agents; Z88.8 Allergy status to other drugs, medicaments and biological substances

== ENCOUNTER → 2024-04-22 | Outpatient (CLI) | payer BC | LOC: M SOG 13:27 | PROVIDERS: ATTEND Physician Assistant | DX: M25.512 Pain in left shoulder (principal) ==

== ENCOUNTER → 2024-06-23 | Outpatient (CLI) | payer BC ==
[2024-06-23 17:57] LABS: BASO % 0.4 % (0.0-1.0); EOS # 0.1 10^3/uL (0.0-0.5); EOS % 2.5 % (0.0-3.0); HEMATOCRIT 43.4 % (36.0-47.0); HEMOGLOBIN 14.1 g/dl (12.0-15.5); LYMPH # 1.3 10^3/uL (1.5-5.0); LYMPH % 27.2 % (24.0-44.0); MEAN CORPUSCULAR HEMOGLOBIN 30.5 pg (27.0-33.0); MEAN CORPUSCULAR HGB CONC 32.5 g/dl (32.0-36.5); MEAN CORPUSCULAR VOLUME 93.9 fl (80.0-96.0); MONO # 0.6 10^3/uL (0.0-0.8); NEUTROPHILS # 2.8 10^3/uL (1.5-8.5); NEUTROPHILS % 57.7 % (36.0-66.0); PLATELET COUNT, AUTOMATED 260 10^3/uL (150-450); RED BLOOD COUNT 4.62 10^6/uL (4.00-5.40); WHITE BLOOD COUNT 4.8 10^3/uL (4.0-10.0)
[2024-06-23 18:17] LABS: ERYTHROCYTE SEDIMENTATION RATE 18 mm/hr (0-30)
[2024-06-23 18:21] LABS: ALBUMIN 3.9 G/DL (3.2-5.2); ALKALINE PHOSPHATASE 89 U/L (35-104); ALT/SGPT 60 U/L (7.0-40); AST/SGOT 75 U/L (<34); BILIRUBIN,TOTAL 0.2 MG/DL (0.3-1.2); BLOOD UREA NITROGEN 8 MG/DL (9-23); C REACTIVE PROTEIN QUANTITATIV 1.54 MG/DL (<1.0); CALCIUM LEVEL 9.3 MG/DL (8.3-10.6); CARBON DIOXIDE LEVEL 30 MMOL/L (20-31); CHLORIDE LEVEL 103 MMOL/L (98-107); CREATININE FOR GFR 0.88 MG/DL (0.55-1.30); GLOMERULAR FILTRATION RATE > 60.0 (>45); GLUCOSE, FASTING 99 MG/DL (74-106); POTASSIUM SERUM 4.6 MMOL/L (3.5-5.1); SODIUM LEVEL 141 MMOL/L (136-145); TOTAL PROTEIN 7.2 G/DL (5.7-8.2)
== END ==
LOC: M PLALAB 14:36
PROVIDERS: ATTEND Nurse Practitioner Family
DX: R50.9 Fever, unspecified (principal)

== ENCOUNTER → 2024-12-14 | Outpatient (REF) | payer BC ==
[2024-12-16 15:17] LABS: HPV APTIMA Not Detected (Not Detected)
== END ==
LOC: M SFHCWAGY 15:11
PROVIDERS: ATTEND Nurse Practitioner Family
DX: Z12.4 Encounter for screening for malignant neoplasm of cervix (principal)

== ENCOUNTER → 2024-12-14 | Outpatient (CLI) | payer BC | LOC: M WHC 12:57 | PROVIDERS: ATTEND Nurse Practitioner Family | DX: Z12.31 Encounter for screening mammogram for malignant neoplasm of breast (principal) ==

== ENCOUNTER → 2025-03-02 | Outpatient (CLI) | payer BC ==
[2025-03-02 17:12] LABS: ALT/SGPT 24.0 U/L (7.0-40); AST/SGOT 20.0 U/L (<34); BASO # 0.0 10^3/uL (0.0-0.2); BASO % 0.6 % (0.0-1.0); CALCIUM LEVEL 9.2 MG/DL (8.3-10.6); CARBON DIOXIDE LEVEL 28.0 MMOL/L (20-31); CHLORIDE LEVEL 101.0 MMOL/L (98-107); CREATININE FOR GFR 0.8 MG/DL (0.55-1.30); EOS # 0.1 10^3/uL (0.0-0.5); EOS % 2.4 % (0.0-3.0); GLOMERULAR FILTRATION RATE 82.2 (>45); LYMPH # 2.2 10^3/uL (1.5-5.0); LYMPH % 44.9 % (24.0-44.0); MONO # 0.5 10^3/uL (0.0-0.8); MONO % 9.5 % (2.0-8.0); NEUTROPHILS # 2.1 10^3/uL (1.5-8.5); NEUTROPHILS % 42.4 % (36.0-66.0); PLATELET COUNT, AUTOMATED 319 10^3/uL (150-450); POTASSIUM SERUM 4.7 MMOL/L (3.5-5.1); SODIUM LEVEL 138.0 MMOL/L (136-145)
== END ==
LOC: M PLALAB 13:10
PROVIDERS: ATTEND Nurse Practitioner Family
DX: R19.5 Other fecal abnormalities (principal)

== ENCOUNTER → 2025-03-17 | Outpatient (REF) | payer BC | LOC: M SFHCDERM 13:10 | PROVIDERS: ATTEND Physician Assistant | DX: L82.1 Other seborrheic keratosis (principal) ==

== ENCOUNTER → 2025-04-19 | Outpatient (CLI) | payer BC | LOC: M PLALAB 13:18 | PROVIDERS: ATTEND Nurse Practitioner Family | DX: M79.10 Myalgia, unspecified site (principal) ==